=== PATIENT | male | born 1960 | race Caucasian/White ===

== ENCOUNTER → 2019-03-26 | Outpatient (CLI) | payer BC, OTHER | LOC: CAT → MRI 07:25 → CAT 03-29 14:51 → MRI 03-29 14:57 | DX: M51.86 Other intervertebral disc disorders, lumbar region (principal); M47.814 Spondylosis without myelopathy or radiculopathy, thoracic region; M47.816 Spondylosis without myelopathy or radiculopathy, lumbar region; M48.061 Spinal stenosis, lumbar region without neurogenic claudication; G89.29 Other chronic pain; Z88.8 Allergy status to other drugs, medicaments and biological substances ==

== ENCOUNTER → 2019-07-04 | Outpatient (CLI) | payer BC, OTHER ==
[~2019-07-04] VITALS: Ht 185.4 cm; Wt 92.1 kg
[~2019-07-04] MED LIST: BUDESONIDE8.43 ML NASAL; DEXTROAMP-AMPHE30 MG PO; FENTANYL1 EAC1 TOP; NEXIUM40 MG PO; OXYCODONE HCL10 MG PO; PERCOCET 10-321 EACH PO; TESTOSTERONE5 G1 TOP; WELLBUTRIN XL300 MG PO; XANAX 0.5 MG0.5 MG PO
[2019-07-04 14:57] VITALS: BP 133/92
--- NOTE | 2019-07-04 15:43 | NUR ---
Pain Clinic Assessment: 1. History of Osteoarthritis: Not Applicable History of Rheumatoid Arthritis: Not Applicable 2. Height: 6 ft. 1 in. 185.4 cm. Weight: 203.0 lb. oz. 92.080 kg. Patient's BMI: 26.8 3. Vital Signs: BP: 133/92 Pulse: 89 Resp: 16 Temp: 02 Sat: 96 ECG Mon: 4. Pain Intensity: 4 5. Fall Risk: Dizziness: N Needs help standing or walking: N Fallen in the last 3 months: N Fall risk comments: 6. Patient on Blood Thinner: None 7. History of Hypertension: N 8. Opioid Therapy greater than 6 weeks: N Opiate Contract Signed: 9. Risk Assessment Tool Provided: LOW RISK 11/22 10. Functional Assessment Tool: 11. Recreational Drug Use: Never Drug Type: Tobacco Use: Never Smoker Tobacco Type: Amount or Packs/day: How Many Years: Alcohol Use: Yes Frequency: Daily Quant: 1
--- NOTE | 2019-07-08 09:00 | HPC ---
[facility] [address] [place] [address] PAIN MANAGEMENT CONSULTATION Name: EMMA LOW Room #: REG SONAM Pearson.#: [id number] Admission: 07/04/19 Attend Phys: Livan London MD Discharge: Date of : 56 Report #: [id number] THIS REPORT FOR: //name// CC: Chema London DATE OF SERVICE: 07/04/2019 CHIEF COMPLAINT: Chronic low back pain. The patient has been on longstanding high dose opioid therapy. I am seeing the patient today at the request of his primary care physician, Dr. Chema Romero, who has been managing his medications. He has been suffering from chronic low back pain without radiculopathy for roughly 2 decades. He denies a history of injury. 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 The pain was severe enough to interfer with work activities. He was traveling back and forth between 2 hospitals, Spending lots of time in his car. He says that this exacerbated pain in his back. He describes it as a constant progressive throbbing sensation with standing. It is worse with bending forward and with lifting. He does not have pain with back extension typical of spondylosis due to facet arthropathy. He reports the pain is improved with pain medications and lying flat on his back. He also uses ice packs and has chronic use of ibuprofen 600 mg 4 times daily. Some days, he will use less, but he has had fairly extensive use of nonsteroidal anti-inflammatory drugs for a number of years. Descriptors of pain include steady, aching, throbbing, sharp and stabbing pain intensity on an average daily basis is 5-7/10. MEDICATIONS: Budesonide, testosterone, bupropion, omeprazole, fentanyl 50 mcg patch q.48 hours shorter interval due to decreased efficacy in the third day, oxycodone 10 immediate release. In addition to oxycodone 10/325, he received a total of 120 tablets per month. MEDICATIONS: Alprazolam 0.5 mg daily for anxiety disorder, dextroamphetamine extended release 30 mg salts taken twice daily, acyclovir, bupropion. ALLERGIES: ZOLOFT, CYMBALTA. PAST MEDICAL HISTORY: History of adult attention deficit disorder, anxiety disorder, gastroesophageal reflux disease. PAST SURGICAL HISTORY: Right elbow medial epicondyle injury 2004, right wrist [facility] [address] [place] [address] PAIN MANAGEMENT CONSULTATION Name: EMMA LOW [id number] Admission: 07/04/19 Attend Phys: Livan London MD Discharge: Date of : 56 Report #: [id number] fracture 1995, vasectomy 2003. 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 By his report his clinic is exceptionally successful, seeing in excess of 130 to 150 patients per month. He is pleased with his current practice and is doing well. He is with 4 children over the age of 20. He denies use of tobacco, but continues to drink alcoholic beverages 1 per day on average. He repeatedly described a contentious relationship with his ex- and some of the children after the divorce. He is wearing a belt under his scrubs today that allows him to carry a handgun and he describes his use of it to carry a concealed weapon, legal in the state of [place]. Impact pain score, 36/70. Scoring highest for enjoyment of life 7, sleep 7, normal work 8 and general activity 7. Opioid risk score positive for attention deficit disorder and a past history of depression scoring 3, addiction risk is low by this score. He denies any family or personal history of alcohol, drug abuse or illegal drug use or abuse. REVIEW OF SYSTEMS: Completed by the patient. In it, he describes only some constipation and some E.D. which may be opioid related. He also describes a history of depression. PHYSICAL EXAMINATION: GENERAL: He is a pleasant 58-year-old gentleman. VITAL SIGNS: Blood pressure is 133/92, heart rate 89, respirations 16, 6 feet 1 inch, 203 pounds, BMI is 26.8. He moves easily from a sitting to standing position. His gait is nonantalgic. HEENT: Normal. His pupils are equal, round, reactive to light and his EOMs are intact. NECK: Supple. CHEST: Clear to auscultation. CARDIAC: Rhythm was regular. MUSCULOSKELETAL: Examination of the spine reveals normal alignment. He has excellent range of motion with flexion, extension, rotation, and [id number] tilt. There is some paraspinous tenderness over a broad area extending throughout the entire lumbar region. Straight leg raising is negative in the supine position. Strength and sensation are judged to be normal. Deep tendon reflexes are 1-2+ at knees and ankles and symmetrical. No focal weakness is noted. No sacroiliac joint tenderness. No hip discomfort with internal and external rotation. No pain with palpation of the greater trochanter on either side and there is no sacroiliac tenderness. X-rays reviewed include a thoracic and lumbar spine. The thoracic spine shows mild spondylosis without evidence of spinal canal or neural foraminal narrowing. [address] [place] [address] PAIN MANAGEMENT CONSULTATION Name: EMMA LOW Room #: REG [facility].#: [id number] Admission: 07/04/19 Attend Phys: Livan London MD Discharge: Date of : 56 Report #: [id number] Similar findings are found in the lumbar, which shows [id number] multilevel disk desiccation and small multilevel disk bulges. There is no significant central canal stenosis. There is, however, some foraminal stenosis, most prominently at L3-L4 and L4-L5. IMPRESSION: Chronic low back pain with spondylosis. RECOMMENDATIONS: We had a lengthy discussion today about his current use of opioids. When I calculated his morphine milligram equivalency, I used the accepted figures come up with a number of 180 MME. Later reviewing his daily oxycodone use, I may have underestimated. If he is indeed taking 60 mg of oxycodone as breakthrough MME would increase to 190 MME per day. This would put him in his category in our pain practice of about the top 5% of patients. He would be considered by todays vernacular, a legacy patient having established these doses many years ago when the treatments were more aggressive. We discussed the CDC guidelines with which he was unfamiliar. This surprised me. I believe the CDC guideline was a good guide for physicians who are willing to manage patients with opioids and helps to put some structure on the use of medication management. He is currently being managed with an opioid agreement, has submitted to random drug screening, is receiving all his medicines from Dr. Romero, no other prescribers and fills all his medications at a single pharmacy. He understands the importance of safeguarding his medications, particularly in light of the high number of pills and his high MME. He is careful to make sure that there is no diversion of medication. He is now quite dependent on opioids and finds that they provide him with daily analgesia and improvement in daily function. He feels that he cannot function well without them. He credits the medication with allowing him to continue to practice albeit in a newer less demanding practice. 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 We discussed the fact that he has very little in the way of objective findings. I have recommended an exercise program to him in the strongest manner. 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 The benefits are widely known certainly for general cardiovascular health, but from the standpoint of chronic low back pain, there is nothing more important. I have urged him to begin a daily walking program and increasing his walking to 10,000 steps. From there, he can move into a more aerobic program. I think this single action will provide the best benefit for his chronic pain. In regard to his opioids, I think that his dose is high and should be tapered as he can. We talked about perhaps switching from fentanyl, which carries with it [address] [address] PAIN MANAGEMENT CONSULTATION Name: EMMA LOW Room #: REG SONAM Valencia#: [id number] Admission: 07/04/19 Attend Phys: Livan London MD Discharge: Date of : 56 Report #: [id number] a high morphine milligram equivalency. 120 of his morphine milligram equivalents come from the fentanyl patch. He has reported that the fentanyl provides the best relief for him and he appreciates continuous release. If he does work with Dr. Romero to taper his medications as he should, I would recommend no more than 10-20% reductions at monthly intervals. Slow tapering seems to be the best way to make adjustments. He has already done some tapering over the last year or two. I think lowering his opioid dependence in face of such limited objective findings is an important goal. Based on his high functioning level and his report of excellent analgesia, I think it is reasonable for him to continue on opioids at this time. Routine followup with his primary care physician is indicated in order to keep close monitoring on his medication. Finally, we did complete an opioid risk tool score. His score was 3, which places him at low risk for addictive behaviors. I will followup visit as requested by Dr. Romero and will assist him with chronic pain management issues. I will discuss this case personally with him. . <ELECTRONICALLY SIGNED> By: Livan London MD 07/08/19 0900 [id number] Livan London MD /nt
== END ==
LOC: PAIN 06:55
DX: M47.816 Spondylosis without myelopathy or radiculopathy, lumbar region (principal)

== ENCOUNTER → 2020-01-06 | Outpatient (CLI) | payer BC, OTHER ==
[~2020-01-06] VITALS: Ht 185.4 cm; Wt 93.5 kg
[2020-01-06 08:55] VITALS: BP 166/86
--- NOTE | 2020-01-06 09:10 | NUR ---
Pain Clinic Assessment: 1. History of Osteoarthritis: NONE History of Rheumatoid Arthritis: NONE 2. Height: 6 ft. 1 in. 185.4 cm. Weight: 206.2 lb. oz. 93.532 kg. Patient's BMI: 27.2 3. Vital Signs: BP: 166/86 Pulse: 103 Resp: 16 Temp: 02 Sat: 100 ECG Mon: 4. Pain Intensity: 6-7 5. Fall Risk: Dizziness: N Needs help standing or walking: N Fallen in the last 3 months: N Fall risk comments: 6. Patient on Blood Thinner: None 7. History of Hypertension: N 8. Opioid Therapy greater than 6 weeks: Y Opiate Contract Signed: 9. Risk Assessment Tool Provided: LOW RISK 11/22 10. Functional Assessment Tool: 11. Recreational Drug Use: Never Drug Type: Tobacco Use: Never Smoker Tobacco Type: Amount or Packs/day: How Many Years: Alcohol Use: Yes Frequency: Weekly Quant:
--- NOTE | 2020-01-16 14:30 | HPC ---
[facility] [place] [address] PAIN MANAGEMENT CONSULTATION Name: EMMA LOW Room #: REG SONAM PaulJazmine.#: [id number] Admission: 01/06/20 Attend Phys: Livan London MD Discharge: Date of : 56 Report #: [id number] THIS REPORT FOR: cc: Chema Romero MD, Neal A. MD Morgan,Livan Mix MD ~ THIS REPORT FOR: //name// CC: Chema London DATE OF SERVICE: 01/06/2020 REASON FOR VISIT: Followup visit for chronic back pain. HISTORY OF PRESENT ILLNESS: The patient is here today, hopeful for an epidural injection. He has had them in the past and they have been helpful. He may well have discogenic pain given his response. His MRI report of the thoracic spine is essentially normal. The lumbar MRI, however, shows multilevel degenerative desiccation and some foraminal stenosis, most prominently at L3-L4 and L4-L5 where he has most significant bulging and desiccation. He is on high-dose opioid therapy. I saw him in 06/2019 at the request of Dr. Romero and we discussed it today again, the importance of using the most effective lowest dose of oxycodone. He is clearly an opioid-dependent patient along with polypharmacy including alprazolam and the need for dextroamphetamine-amphetamine extended release to help with attention deficit disorder. I did have completed an opioid risk score today, which is 3 for attention deficit disorder and depression. 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 All of his goals focus on lowering pain in order to improve sleep and work. PHYSICAL EXAMINATION: He is pleasant, alert and oriented, no signs of overmedication, depression, or anxiety. He moves independently and easily from sitting to standing position, ambulates without too much difficulty. There are no antalgic features to his gait. Blood pressure is 166/86, heart rate 103, respirations 16, 6 feet 1 inch, 185, BMI of 27.2. He has mild pain with forward flexion, worse with extension. There is no radicular pain. Straight leg raising is negative. Sensation and strength in lower extremities are normal. IMPRESSION: Chronic back pain with degenerative disk disease. Minimal radiculopathy, primarily axial back pain with discogenic mechanism. [address] [address] PAIN MANAGEMENT CONSULTATION Name: EMMA LOW Room #: REG CLI [facility]#: [id number] Admission: 01/06/20 Attend Phys: Livan London MD Discharge: Date of : 56 Report #: [id number] PROCEDURE: Lumbar epidural injection under fluoroscopic guidance, L3-L4. After informed consent, he was taken to the fluoroscopic suite, placed prone, skin prepped with ChloraPrep. Skin anesthetized over L3-L4. A 20-gauge Tuohy epidural needle advanced in first attempt in the epidural space with loss of resistance. There was no blood or CSF aspirated. A 1 mL of Omnipaque injected. Good spread of dye observed in the epidural space followed by 3 mL of 0.5% lidocaine with 80 mg of triamcinolone. He tolerated the procedure well and was observed for 45 minutes and discharged. Followup visit planned in the pain clinic on an as needed basis for repeat injections. I will continue to discuss goals of lowest effective dose of opioids and reduction in polypharmacy going forward. <ELECTRONICALLY SIGNED> By: Livan London MD 01/16/20 1430 1628 0000 Livan London MD /nt
== END | disposition home or self-care (01) ==
LOC: PAIN 06:51
DX: M51.16 Intervertebral disc disorders with radiculopathy, lumbar region (principal); G89.29 Other chronic pain; M54.9 Dorsalgia, unspecified; F11.20 Opioid dependence, uncomplicated; Z98.890 Other specified postprocedural states; Z79.899 Other long term (current) drug therapy; Z88.8 Allergy status to other drugs, medicaments and biological substances

== ENCOUNTER 2021-01-31 13:06 | Inpatient (IN) | payer BC, OTHER ==
[~2021-01-31] VITALS: Ht 188 cm; Wt 67.0 kg
--- NOTE | ~2021-01-31 | TEE ---
[facility] [address] [address] TRANSESOPHAGEAL ECHOCARDIOGRAM Name: EMMA LOW Room #: 237-P ADM IN M.R.#: [id number] Admission: 01/31/21 Attend Phys: Chema Romero MD Discharge: Date of : 56 Report #: [id number] THIS REPORT FOR: cc: Chema Romero MD, Neal A. MD Lundgren, Craig H. MD [facility] ~ APPROVED REPORT Study performed: 02/02/2021 09:04:58 EXAM: Comprehensive 2D, Doppler, and color-flow Echocardiogram Patient Location: ICU Room #: 237 Status: routine BSA: 2.17 HR: 94 bpm BP: 110/62 mmHg Rhythm: NSR Other Information Study Quality: Good Indications Arrhythmia Covid 2D Dimensions RVDd: 39.48 mm IVSd: 8.35 (7-11mm) LVOT Diam: 20.25 (18-24mm) LVDd: 43.39 mm PWd: 9.45 (7-11mm) Ascending Ao: 33.50 (22-36mm) LVDs: 26.51 (25-40mm) Aortic Root: 26.86 mm IVC: 12.00 mm Volumes Left Atrial Volume (Systole) Single Plane 4CH: 43.22 mL Single Plane 2CH: 47.30 mL LA ESV Index: 24.00 mL/m2 Aortic Valve AoV Peak Claudio.: 1.39 m/s AO Peak Gr.: 7.72 mmHg LVOT Max P.86 mmHg LVOT Max V: 1.21 m/s RICCI Vmax: 2.80 cm2 [facility] [address] [place] [address] TRANSESOPHAGEAL ECHOCARDIOGRAM Name: EMMA LOW Room #: 237-P [facility]#: [id number] Admission: 01/31/21 Attend Phys: Chema Romero, Discharge: Date of : 56 Report #: [id number] Pulmonary Valve PV Peak Claudio.: 1.23 m/s PV Peak Gr.: 6.07 mmHg Left Ventricle The left ventricle is normal size. There is normal LV segmental wall motion. There is normal left ventricular wall thickness. Left ventricular systolic function is normal. The left ventricular ejection fraction is within the normal range. LVEF is 60-65%. The left ventricular diastolic function is normal. Right Ventricle The right ventricle is normal size. The right ventricular systolic function is normal. Atria The left atrium size is normal. The right atrium size is normal. Aortic Valve The aortic valve is normal in structure. No aortic regurgitation is present. There is no aortic valvular stenosis. Mitral Valve The mitral valve is normal in structure. There is no mitral valve regurgitation noted. No evidence of mitral valve stenosis. Tricuspid Valve The tricuspid valve is normal in structure. There is no tricuspid valve regurgitation noted. Pulmonic Valve The pulmonary valve is normal in structure. There is no pulmonic valvular regurgitation. Great Vessels The aortic root is normal in size. IVC is normal in size and collapses >50% with inspiration. Pericardium There is no pericardial effusion. <Conclusion> Left ventricular systolic function is normal. There is normal LV segmental wall motion. LVEF is 60-65%. Normal diastolic function [facility] [address] [place] [address] TRANSESOPHAGEAL ECHOCARDIOGRAM Name: EMMA LOW Room #: 237-P ADM IN .R.#: [id number] Admission: 01/31/21 Attend Phys: Chema Romero, Discharge: Date of : 56 Report #: [id number] The aortic valve is normal in structure. No aortic regurgitation or stenosis The mitral valve is normal in structure. No mitral valve regurgitation. Pulmonary artery pressure could not be reliably ascertained. There is no pericardial effusion. By: 1022 1022 Julian Villeda MD, FACC /INF
--- NOTE | ~2021-01-31 | EMS ---
[address] [address] EMS Patient Care Report Name: EMMA LOW Room #: 237-P ADM IN M.R.#: [id number] Admission: 01/31/21 Attend Phys: Chema Romero MD Discharge: Date of : 56 Report #: [id number] THIS REPORT FOR: //name// Report Transmitted: 02/08/2021 07:23 EMS Care Summary [facility] MED-ACT Incident [id number] @ 01/31/2021 12:23 Incident Location [address] [place] [address] Patient EMMA LOW Male, 60 Years 1960 Patient Address [address] [place] [address] Patient History Hypertension (HTN),Back Pain (Chronic), Patient Allergies No known allergies, Patient Medications Hydrochlorothiazide (Hctz), Bupropion, Adderall, Oxycodone, Hydrocodone, Chief Complaint Cardiac Arrest Disposition Transported No Lights/[place] Dispatch Reason Cardiac Arrest/ Transported To [facility] Narrative M1149 dispatched C1 to residence for Non-breather. Code blue called at 1227 by Sebas RODRIGUEZ (tug captain) Upon arrival pt found lying supine on floor in bedroom, unconscious, apneic, and pulseless. CPR and assisted respirations in progress by on scene first [address] [address] EMS Patient Care Report Name: EMMA LOW Room #: 237-P ADM IN .R.#: [id number] Admission: 01/31/21 Attend Phys: Chema Roemro MD Discharge: Date of : 56 Report #: [id number] responders. Pt states that she last saw the pt alive at 2230 last night when he went to bed, Pt state that the pt drank heavily last night and takes oxycodone and hydrocodone for chronic pain. Pt states that she found the pt face down in the bed, unconscious, and not breathing. First responding fire department states that they found a fentanyl (unknown dosage) patch on each shoulder and removed them. First responding fire department states that the pt was blue when they arrived but his chest was warm to the touch. Pt initially in asystole, and then PEA until ROSC. ROSC achieved at 1241. Strong radial pulse Pt began breathing spontaneously on his own while still in the house (approx 12:57) No eye reaction Rohit device placed on patient prior to moving to the cot. Delay in first BP due to BP cuff air leak. At approx 1301 the pt began breathing more on his own but not consistently. Pt did not fight the IGEL. No eye reaction. Pt vitals and condition monitored enroute. Report given to hospital. Pt care transferred in ER room. Appended: Correction: pt states that she last saw the pt alive at 1030 this morning. Correction: pt found the pt face down in the bed just prior to calling 911. Initial Vitals @12:17WeHY1: 84, @12:37Glucose: 108,EtCO2: 68, @13:02P: 113,R: 27,GCS: 3,EtCO2: 35,[place] Suspected: false @PTAP: 0,R: 0,GCS: 3, @12:33P: 0,R: 8,Pain: 0/10,GCS: 3, @13:02P: 116,R: 12,BP: 89/39,GCS: 3,EtCO2: 32,Revised Trauma: 7, @12:52P: 130,R: 18,BP: 85/48,GCS: 3,CO: 0,EtCO2: 59,SpO2: 99,Revised Trauma: 7, @12:46P: 146,R: 14,BP: 141/65,GCS: 3,CO: 1,EtCO2: 71,SpO2: 95,Revised Trauma: 8, @12:41P: 146,R: 10,GCS: 3,EtCO2: 83, @12:43P: 146,R: 9,GCS: 3,EtCO2: 89,VT Suspected: false [address] [address] EMS Patient Care Report Name: EMMA LOW Room #: 237-P ADM IN M.R.#: [id number] Admission: 01/31/21 Attend Phys: Chema Romero MD Discharge: Date of : 56 Report #: [id number] Assessments @12:33MENTAL:Unresponsive,SKIN:HEENT:Eyes: Left: Dilated,Eyes: Right: Dilated,Eyes: Left Pupil: 5-mm,Eyes: Right Pupil: 5-mm,LUNG SOUNDS:ABDOMEN:PELVIS//GI:EXTREMITIES:PULSE:Femoral: Absent,Carotid: Absent,Radial: Absent,NEURO:@12:32MENTAL:Unresponsive,SKIN:HEENT:LUNG SOUNDS:ABDOMEN:PELVIS//GI:EXTREMITIES:PULSE:Radial: 2+ Normal,Carotid: 2+ Normal,Femoral: 2+ Normal,NEURO: Impression Cardiac arrest Procedures @12:37Epinephrine 1:10 - 1 Milligrams (mg) - Intravenous (IV)Response: Improved@12:41Epinephrine 1:10 - 1 Milligrams (mg) - Intravenous (IV)Response: Improved@13:0212-Lead ECGResponse: UnchangedSucceeded@12:4312-Lead ECGResponse: UnchangedSucceeded@PTAResponse: ImprovedSucceeded@12:36Normal Saline (.9% NaCl) 650cc (18 ga) Site: Antecubital-RightResponse: ImprovedSucceeded@PTAiGEL Complications: None,Response: ImprovedSucceeded@PTAResponse: UnchangedFailed@12:40Naloxone - 1 Milligrams (mg) - Intravenous (IV)Response: Improved@12:56Norepinephrine - 10 Micrograms (mcg) - Intravenous (IV)Response: Improved Timeline HAMMERER,Response: ImprovedSucceeded, HAMMERER,iGEL Complications: None,,Response: ImprovedSucceeded, HAMMERER,Response: UnchangedFailed, HAMMERER,BP: / M,PULSE: 0,RR: 0 R,SPO2: Ox,ETCO2: ,BG: ,PAIN: ,GCS: 3, 12:22,Call Received 12:22,Psap Call 12:23,Dispatched 12:24,En Route 12:31,On Scene 12:32,At Patient 12:33,BP: / M,PULSE: 0,RR: 8 R,SPO2: Ox,ETCO2: ,BG: ,PAIN: 0,GCS: 3, 12:36,Normal Saline (.9% NaCl) 650cc 18 ga Site: Antecubital-Right,Response: ImprovedSucceeded, 12:37,BP: / M,PULSE: ,RR: R,SPO2: Ox,ETCO2: 68 ,B,PAIN: ,GCS: , 12:37,Epinephrine 1:10 - 1 Milligrams (mg) - Intravenous (IV),Response: Improved 12:40,Naloxone - 1 Milligrams (mg) - Intravenous (IV),Response: Improved 12:40,BP: / M,PULSE: ,RR: R,SPO2: Ox,ETCO2: 84 ,BG: ,PAIN: ,GCS: , 12:41,Epinephrine 1:10 - 1 Milligrams (mg) - Intravenous (IV),Response: Improved 12:41,BP: / M,PULSE: 146,RR: 10 R,SPO2: Ox,ETCO2: 83 ,BG: ,PAIN: ,GCS: 3, 12:43,12-Lead ECG,Response: UnchangedSucceeded, 12:43,BP: / M,PULSE: 146,RR: 9 R,SPO2: Ox,ETCO2: 89 ,BG: ,PAIN: ,GCS: 3, 12:46,BP: 141/65 M,PULSE: 146,RR: 14 R,SPO2: 95 Ox,ETCO2: 71 ,BG: ,PAIN: ,GCS: 3, [facility] [address] [facility] [place] [address] EMS Patient Care Report Name: EMMA LOW Room #: 237-P ADM IN M.R.#: [id number] Admission: 01/31/21 Attend Phys: Chema Romero MD Discharge: Date of : 56 Report #: [id number] 12:52,BP: 85/48 M,PULSE: 130,RR: 18 R,SPO2: 99 Ox,ETCO2: 59 ,BG: ,PAIN: ,GCS: 3, 12:56,Norepinephrine - 10 Micrograms (mcg) - Intravenous (IV),Response: Improved 12:58,Depart Scene 13:02,12-Lead ECG,Response: UnchangedSucceeded, 13:02,BP: / M,PULSE: 113,RR: 27 R,SPO2: Ox,ETCO2: 35 ,BG: ,PAIN: ,GCS: 3, 13:02,BP: 89/39 M,PULSE: 116,RR: 12 R,SPO2: Ox,ETCO2: 32 ,BG: ,PAIN: ,GCS: 3, 13:03,At Destination 13:59,Call Closed Disclaimer v1.1 Copyright 2020 [employer] This EMS Care Summary contains data elements from the applicable legal record (which may be displayed differently). It is designed to provide pertinent information for the following purposes: continuity of care, clinical quality, and state data reporting. The complete legal record is available to ED staff and administrators of the receiving hospital in [employer] Patient Tracker. All data is provided "as is."
--- NOTE | ~2021-01-31 | EMS ---
[address] [address] EMS Patient Care Report Name: EMMA LOW Room #: 237-P ADM IN M.R.#: [id number] Admission: 01/31/21 Attend Phys: Jayden Ramon Discharge: Date of : 56 Report #: [id number] THIS REPORT FOR: //name// Report Transmitted: 01/31/2021 18:58 EMS [facility] MED-ACT Incident [id number] @ 01/31/2021 12:23 Incident Location [address] [place] [address] Patient EMMA LOW Male, 60 Years 1960 Patient Address [address] [place] [address] Patient History Hypertension (HTN),Back Pain (Chronic), Patient Allergies No known allergies, Patient Medications Hydrochlorothiazide (Hctz), Bupropion, Adderall, Oxycodone, Hydrocodone, Chief Complaint Cardiac Arrest Disposition Transported No Lights/[place] Dispatch Reason Cardiac Arrest/ Transported To [facility] Narrative M1149 dispatched C1 to residence for Non-breather. Code blue called at 1227 by Sebas RODRIGUEZ (seating captain) Upon arrival pt found lying supine on floor in bedroom, unconscious, apneic, and pulseless. CPR and assisted respirations in progress by on scene first [address] [address] EMS Patient Care Report Name: EMMA LOW Room #: 237-P ADM IN M.R.#: [id number] Admission: 01/31/21 Attend Phys: Jayden Ramon Discharge: Date of : 56 Report #: [id number] responders. Pt states that she last saw the pt alive at 2230 last night when he went to bed, Pt state that the pt drank heavily last night and takes oxycodone and hydrocodone for chronic pain. Pt states that she found the pt face down in the bed, unconscious, and not breathing. First responding fire department states that they found a fentanyl (unknown dosage) patch on each shoulder and removed them. First responding fire department states that the pt was blue when they arrived but his chest was warm to the touch. Pt initially in asystole, and then PEA until ROSC. ROSC achieved at 1241. Strong radial pulse Pt began breathing spontaneously on his own while still in the house (approx 12:57) No eye reaction Rohit device placed on patient prior to moving to the cot. Delay in first BP due to BP cuff air leak. At approx 1301 the pt began breathing more on his own but not consistently. Pt did not fight the IGEL. No eye reaction. Pt vitals and condition monitored enroute. Report given to hospital. Pt care transferred in ER room. Initial Vitals @12:43YxJZ1: 84, @12:37Glucose: 108,EtCO2: 68, @13:02P: 113,R: 27,GCS: 3,EtCO2: 35,[place] Suspected: false @PTAP: 0,R: 0,GCS: 3, @12:33P: 0,R: 8,Pain: 0/10,GCS: 3, @13:02P: 116,R: 12,BP: 89/39,GCS: 3,EtCO2: 32,Revised Trauma: 7, @12:52P: 130,R: 18,BP: 85/48,GCS: 3,CO: 0,EtCO2: 59,SpO2: 99,Revised Trauma: 7, @12:46P: 146,R: 14,BP: 141/65,GCS: 3,CO: 1,EtCO2: 71,SpO2: 95,Revised Trauma: 8, @12:41P: 146,R: 10,GCS: 3,EtCO2: 83, @12:43P: 146,R: 9,GCS: 3,EtCO2: 89,[place] Suspected: false Assessments @12:33MENTAL:Unresponsive,SKIN:HEENT:Eyes: Left: Dilated,Eyes: Right: Dilated,Eyes: Left Pupil: 5-mm,Eyes: Right Pupil: 5-mm,LUNG SOUNDS:ABDOMEN:PELVIS//GI:EXTREMITIES:PULSE:Femoral: Absent,Carotid: [facility] [address] [place] [address] EMS Patient Care Report Name: EMMA LOW Room #: 237-P ADM IN M.R.#: [id number] Admission: 01/31/21 Attend Phys: Jayden Ramon Discharge: Date of : 56 Report #: [id number] Absent,Radial: Absent,NEURO:@12:32MENTAL:Unresponsive,SKIN:HEENT:LUNG SOUNDS:ABDOMEN:PELVIS//GI:EXTREMITIES:PULSE:Radial: 2+ Normal,Carotid: 2+ Normal,Femoral: 2+ Normal,NEURO: Impression Cardiac arrest Procedures @12:37Epinephrine 1:10 - 1 Milligrams (mg) - Intravenous (IV)Response: Improved@12:41Epinephrine 1:10 - 1 Milligrams (mg) - Intravenous (IV)Response: Improved@13:0212-Lead ECGResponse: UnchangedSucceeded@12:4312-Lead ECGResponse: UnchangedSucceeded@PTAResponse: ImprovedSucceeded@12:36Normal Saline (.9% NaCl) 650cc (18 ga) Site: Antecubital-RightResponse: ImprovedSucceeded@PTAiGEL Complications: None,Response: ImprovedSucceeded@PTAResponse: UnchangedFailed@12:40Naloxone - 1 Milligrams (mg) - Intravenous (IV)Response: Improved@12:56Norepinephrine - 10 Micrograms (mcg) - Intravenous (IV)Response: Improved Timeline PRINCIPLE INDUSTRIAL HYGIENIST,Response: ImprovedSucceeded, PRINCIPLE INDUSTRIAL HYGIENIST,iGEL Complications: None,,Response: ImprovedSucceeded, PRINCIPLE INDUSTRIAL HYGIENIST,Response: UnchangedFailed, PRINCIPLE INDUSTRIAL HYGIENIST,BP: / M,PULSE: 0,RR: 0 R,SPO2: Ox,ETCO2: ,BG: ,PAIN: ,GCS: 3, 12:22,Call Received 12:22,Psap Call 12:23,Dispatched 12:24,En Route 12:31,On Scene 12:32,At Patient 12:33,BP: / M,PULSE: 0,RR: 8 R,SPO2: Ox,ETCO2: ,BG: ,PAIN: 0,GCS: 3, 12:36,Normal Saline (.9% NaCl) 650cc 18 ga Site: Antecubital-Right,Response: ImprovedSucceeded, 12:37,BP: / M,PULSE: ,RR: R,SPO2: Ox,ETCO2: 68 ,B,PAIN: ,GCS: , 12:37,Epinephrine 1:10 - 1 Milligrams (mg) - Intravenous (IV),Response: Improved 12:40,Naloxone - 1 Milligrams (mg) - Intravenous (IV),Response: Improved 12:40,BP: / M,PULSE: ,RR: R,SPO2: Ox,ETCO2: 84 ,BG: ,PAIN: ,GCS: , 12:41,Epinephrine 1:10 - 1 Milligrams (mg) - Intravenous (IV),Response: Improved 12:41,BP: / M,PULSE: 146,RR: 10 R,SPO2: Ox,ETCO2: 83 ,BG: ,PAIN: ,GCS: 3, 12:43,12-Lead ECG,Response: UnchangedSucceeded, 12:43,BP: / M,PULSE: 146,RR: 9 R,SPO2: Ox,ETCO2: 89 ,BG: ,PAIN: ,GCS: 3, 12:46,BP: 141/65 M,PULSE: 146,RR: 14 R,SPO2: 95 Ox,ETCO2: 71 ,BG: ,PAIN: ,GCS: 3, 12:52,BP: 85/48 M,PULSE: 130,RR: 18 R,SPO2: 99 Ox,ETCO2: 59 ,BG: ,PAIN: ,GCS: 3, 12:56,Norepinephrine - 10 Micrograms (mcg) - Intravenous (IV),Response: Improved 12:58,Depart Scene 13:02,12-Lead ECG,Response: UnchangedSucceeded, [address] [address] EMS Patient Care Report Name: EMMA LOW Room #: 237-P ADM IN M.R.#: [id number] Admission: 01/31/21 Attend Phys: Jayden Ramon Discharge: Date of : 56 Report #: [id number] 13:02,BP: / M,PULSE: 113,RR: 27 R,SPO2: Ox,ETCO2: 35 ,BG: ,PAIN: ,GCS: 3, 13:02,BP: 89/39 M,PULSE: 116,RR: 12 R,SPO2: Ox,ETCO2: 32 ,BG: ,PAIN: ,GCS: 3, 13:03,At Destination 13:59,Call Closed Disclaimer v1.1 Copyright 2020 [employer] This EMS Care Summary contains data elements from the applicable legal record (which may be displayed differently). It is designed to provide pertinent information for the following purposes: continuity of care, clinical quality, and state data reporting. The complete legal record is available to ED staff and administrators of the receiving hospital in [employer] Patient Tracker. All data is provided "as is."
--- NOTE | ~2021-01-31 | EEG ---
[facility] [place] [address] ELECTROENCEPHALOGRAM Name: EMMA LOW Room #: 454-P ADM IN M.R.#: [id number] Admission: 01/31/21 Attend Phys: Chema Romero MD Discharge: Date of : 56 Report #: [id number] THIS REPORT FOR: //name// DATE OF SERVICE: 02/18/2021 This patient had 4 EEGs before, and this one was done because the other one was when the patient was on sedation. This EEG was done without any sedation and all the sedations were discontinued. This EEG is about the same. It is a severely abnormal EEG, which demonstrated triphasic waves versus epileptiform activity. We had tried to distinguish between these two in the prior EEG by stopping the propofol, and it looked like epileptiform activity. Photic stimulation is unremarkable. IMPRESSION: Even without sedation, the patient's EEG continued to be severely abnormal consistent with hypoxic encephalopathy with possible seizure activity. EEG was discussed with the family. This patient clinically has brainstem reflexes. I discussed with the patient's family that if we need to determine the prognosis with 100% accuracy, the patient will need PEG and trach and supportive care for several weeks to several months. In general, prognosis is guarded for any reasonable medical recovery, which can sustain reasonable quality of the life. This patient survived because the respiratory centers are intact. They may go to minimum conscious state or a life, which requires a lot of help. Family is aware of all those, and it was their decision that this patient would have asked to discontinue his life support measure at this stage if he was able to make his own decision. They wanted hospice and comfort care in this patient for the time being, and plan was to follow that. Thank you very much for this referral and if you have any question, please feel free to contact me. By: 1340 1437 Danny Berman MD /nt
[2021-01-31 13:06] VITALS: BP 209/124
[2021-01-31 13:24] LABS: BE(vivo) -7.8 mmol/L (-2 to +3); HCO3 16.7 mmol/L (22.0-26.0); PCO2 31.7 mmHg (35.0-45.0); PO2 71.1 mmHg (80.0-100.0); pH 7.339 (7.360-7.450); sO2 93.6 % (92.0-98.0)
[2021-01-31 13:36] LABS: HEMATOCRIT 41.2 % (42.0-52.0); HEMOGLOBIN 14.1 gm/dL (14.0-18.0); MCH 32.4 pg (26.0-34.0); MCHC 34.1 g/dL (28.0-37.0); MCV 94.9 fL (80.0-100.0); PLATELET COUNT 203 thou/uL (150-400); RBC 4.34 mil/uL (4.50-6.00); WBC 10.1 thou/uL (4.0-11.0)
[2021-01-31 13:41] LABS: ANION GAP 13 mmol/L (7-16); BUN 31 mg/dL (7-18); CALCIUM 8.6 mg/dL (8.5-10.1); CHLORIDE 98 mmol/L (98-107); CO2 25 mmol/L (21-32); CREATININE 1.7 mg/dL (0.7-1.3); GLUCOSE 165 mg/dL (74-106); POTASSIUM 3.6 mmol/L (3.5-5.1); SODIUM 136 mmol/L (136-145)
[2021-01-31 13:47] LABS: DIRECT BILIRUBIN < 0.1 mg/dL (<0.1-0.2); SGOT 133 U/L (15-37); SGPT 142 U/L (16-63); TOTAL BILIRUBIN 0.3 mg/dL (0.2-1.0); TOTAL PROTEIN 7.2 g/dL (6.4-8.2)
[2021-01-31 13:49] LABS: URINE BILIRUBIN NEGATIVE (Negative); URINE BLOOD 2+ (Negative); URINE CLARITY CLEAR; URINE COLOR YELLOW; URINE GLUCOSE-RANDOM* NEGATIVE (Negative); URINE KETONES NEGATIVE (Negative); URINE LEUKOCYTES-REFLEX NEGATIVE (Negative); URINE NITRITE-REFLEX NEGATIVE (Negative); URINE PROTEIN (DIPSTICK) 1+ (Negative); URINE UROBILINOGEN 0.2 E.U./dl (0.2-1.0)
[2021-01-31 13:56] LABS: AMP/METHAMP POSITIVE (Negative); BARBITURATES Negative (Negative); BENZODIAZEPINES POSITIVE (Negative); COCAINE Negative (Negative); METHADONE Negative (Negative); OPIATES POSITIVE (Negative); PCP Negative (Negative)
[2021-01-31 14:03] LABS: MUCUS 0-3 Light strn/LPF (None Seen); SQUAMOUS None Seen /LPF (0-3)
[2021-01-31 14:04] LABS: HYALINE CASTS 0-3 Few /LPF (None Seen); URINE WBC-REFLEX 0-5 Rare /HPF (0-5)
[2021-01-31 14:06] LABS: CRYSTALS None Seen /LPF (None Seen)
[2021-01-31 14:33] LABS: ABSOLUTE NEUTROPHILS 6.6 thou/uL (1.4-8.2); ANISOCYTOSIS 1+
[2021-01-31] MEDS ORDERED: BENICAR40 MG PO (16:03)
[2021-01-31] MEDS ORDERED: ROSUVASTATIN CA10 MG PO (16:06)
[2021-01-31] MEDS ORDERED: HYDROCODON-ACE1 EAC7 PO (16:07)
--- NOTE | 2021-01-31 16:45 | NUR ---
ETOMIDATE 20 MG GIVEN AT 1631, SUCCINYLCHOLINE 100 MG GIVEN AT 1632, INTUBATION 7.5 @ 1635, 25 AT THE LIP, OG TUBE @ 1645 55 @ LIP
--- NOTE | 2021-01-31 18:34 | NUR ---
CONSULTED TO PLACE A PICC FOR A PATIENT POST CARDIAC ARREST HAVING ACTIVE SEIZURES. ORDER AND CONSENT NOTED. THE PATIENT IS UNRESPONSIVE TO TEACHING. THE RIGHT UPPER ARM BRACHIAL VEIN IS WIDLEY PATIENT WITH THE VEIN TO CATHETER RATIO LESS THAN 25%. A #5F TRIPLE LUMEN POWER PICC WAS PLACED PER HOSPITAL POLICY AFTER A BEDSIDE TIMEOUT WAS COMPLETED. THE PICC WAS TRIMMED TO 41CM AND CONFIRMED AT 4CM EXTERNAL WITH 3CG CONFIRMATION. LINE WAS SECURED AND RELEASED FOR USE.
[2021-01-31 19:20] VITALS: BP 128/66
[2021-01-31 20:00] VITALS: BP 90/54
[2021-01-31 21:45] LABS: D-DIMER 4.98 ug/mLFEU (0.19-0.50)
[2021-01-31 22:37] LABS: BE(vivo) -2.6 mmol/L (-2 to +3); HCO3 24.3 mmol/L (22.0-26.0); PCO2 50.6 mmHg (35.0-45.0); PO2 106.7 mmHg (80.0-100.0); sO2 97.3 % (92.0-98.0)
[2021-01-31 22:39] LABS: pH 7.299 (7.360-7.450)
[2021-02-01] VITALS (19 sets, daily range): BP systolic 78–126; BP diastolic 41–72
[2021-02-01 00:37] LABS: ABSOLUTE NEUTROPHILS 6.3 thou/uL (1.4-8.2); BASOPHILS 0.3 % (0.0-2.0); EOSINOPHILS 0.2 % (0.0-3.0); HEMATOCRIT 38.1 % (42.0-52.0); HEMOGLOBIN 13.1 gm/dL (14.0-18.0); LYMPHOCYTES 9.2 % (24.0-44.0); MCHC 34.3 g/dL (28.0-37.0); MCV 93.3 fL (80.0-100.0); MONOCYTES 5.5 % (1.0-8.0); PLATELET COUNT 161 thou/uL (150-400); POLYS 84.8 % (36.0-66.0); RBC 4.08 mil/uL (4.50-6.00); WBC 7.5 thou/uL (4.0-11.0)
[2021-02-01 00:48] LABS: CALCIUM 7.8 mg/dL (8.5-10.1); TROPONIN-I 0.21 ng/mL (<0.06)
--- NOTE | 2021-02-01 01:28 | NUR ---
PT ARRIVED TO ICU FROM ER ON 01/31 AT APPROX 1940. PATIENT TRANSFERED TO ICU BED WITHOUT COMPLICATION AND PLACED ON MONITOR. PATIENT EXPERIENCING TWITCHING IN FACE AND CHEST, R ARM MOVING TOWARDS CORE, AND BILAT FEET POINTING INWARD. PUPILS FIXED APPROX 2MM. POSITIVE CORNEAL, NO COUGH OR GAG. PATIENT TEMP 39.4, AND PLACED ON ARTIC SUN FOR TTM AT 2000. DR MIRANDA TO BEDSIDE FOR A LINE. HYPOTHERMIA PROTOCOL ORDERED VERBAL WITH READ BACK DOCTOR RUTH. FLOTRACK APPLIED. CONTINUE PLAN OF CARE. SEE ICU VITAL SIGN CARTING FOR FURTHER DOCUMENTATION. PATIENT ACHIEVED TARGTED TEMP OF 33*C AT 2340. WILL CONTINUE TO MONITOR.
[2021-02-01 01:36] LABS: APTT 26.5 Seconds (24.5-32.8)
[2021-02-01 03:03] LABS: CREATININE 1.1 mg/dL (0.7-1.3); MAGNESIUM 1.9 mg/dL (1.8-2.4); PHOSPHORUS 3.2 mg/dL (2.6-4.7); POTASSIUM 3.5 mmol/L (3.5-5.1)
--- NOTE | 2021-02-01 03:36 | NUR ---
PTS S.O. (ALEXANDRA SMITH) HAS CALLED SEVERAL TIME THROUGHOUT THE SHIFT FOR UPDATES. THIS RN IS WORKING WITH DONA MENCHACA FROM ED TO GET DPOA PAPERWORK. S.O. STATES THAT SHE HAS DPOA. S.O. SENT DPOA PAPERWORK BUT THE PAGE WITH INFORMATION REGARDING WHO WAS LISTED DPOA WAS MISSING FROM THE DOCUMENT. THIS RN REQUESTED THAT IT BE SENT TO [facility] AGAIN. S.O. AGREED TO SEND AGAIN. S.O. STATES THAT SHE IS CONCERNED ABOUT ASTRANGED FAMILY GETTING INFORMATION. RN STRESSED IMPORTANCE OF DPOA PAPERWORK. RN EXPLAINED THAT "PLAN OF CARE HAS NOT CHANGED" WHEN ASKED FOR UPDATE. PTS DAUGHTER, COLIN, ALSO CALLED REQUESTING THAT PTS CHILDREN BE ABLE TO VISIT AND GET INFORMATION. COLIN STATED THAT ALEXANDRA SMITH IS DPOA. RN STATED THAT ALL INFORMATION WILL HAVE TO GO THRU DPOA. COLIN STATES THAT SHE WILL CALL A PATIENT AUTO SERVICE DISPATCHER AND ADMIN IN THE MORNING WITH CONCERNS ABOUT DPOA.
[2021-02-01 03:54] LABS: BE(vivo) -1.8 mmol/L (-2 to +3); PCO2 39.2 mmHg (35.0-45.0); pH 7.386 (7.360-7.450); sO2 98.7 % (92.0-98.0)
--- NOTE | 2021-02-01 05:22 | NUR ---
PATIENT REMAINS ON TTM PROTOCOL. PLAN TO REWARM TODAY AT 2340. LIMITED NEURO EXAM R/T SEDATION FOR TTM. REQUIRING MAX PROPFOL, FENTANYL AND MODERATE AMOUNTS OF VERSED TO REDUCE SHIVERING/MYOCLONUS. SEE ICU VS CHARTING FOR DETAILS. PUPILS FIXED AT 2MM, POSITIVE CORNEAL, NO COUGH GAG OR PAIN WD. MINIMAL VENT SETTINGS. ADEQUATE URINE OUTPUT. CONTINUE WITH CURRENT PLAN OF CARE.
[2021-02-01 06:14] LABS: ABSOLUTE NEUTROPHILS 9.2 thou/uL (1.4-8.2); BASOPHILS 0.1 % (0.0-2.0); EOSINOPHILS 0.1 % (0.0-3.0); HEMOGLOBIN 13.2 gm/dL (14.0-18.0); LYMPHOCYTES 4.1 % (24.0-44.0); MCH 31.6 pg (26.0-34.0); MCHC 33.7 g/dL (28.0-37.0); MCV 93.7 fL (80.0-100.0); MONOCYTES 6.3 % (1.0-8.0); PLATELET COUNT 154 thou/uL (150-400); POLYS 89.4 % (36.0-66.0); RBC 4.17 mil/uL (4.50-6.00); RDW 12.8 % (10.5-14.5); WBC 10.2 thou/uL (4.0-11.0)
[2021-02-01 06:27] LABS: CALCIUM 7.9 mg/dL (8.5-10.1); PHOSPHORUS 2.7 mg/dL (2.5-4.9); POTASSIUM 3.7 mmol/L (3.5-5.1); TROPONIN-I 0.08 ng/mL (<0.06)
[2021-02-01 06:43] LABS: APTT 24.8 Seconds (24.5-32.8); PROTIME 10.9 Seconds (9.3-11.4)
--- NOTE | 2021-02-01 07:20 | EKG ---
[address] [address] ELECTROCARDIOGRAM REPORT Name: EMMA LOW Room #: 237- ADM IN M.R.#: [id number] Admission: 01/31/21 Attend Phys: Jayden Ramon Discharge: Date of : 56 Report #: [id number] [facility] ED Test Date: 2021-01-31 Test Time: 15:44:11 Pat Name: EMMA LOW Department: Room: 237 Gender: M Nursing Home Director: angélica : 1960 Requested By: Jayden Ramon Order Number: [id number] MD: Reyes Franks Measurements Intervals [place] Rate: 101 P: 53 [place]: 201 QRS: -45 QRSD: 141 T: 57 QT: 370 QTc: 480 Interpretive Statements Sinus tachycardia Left bundle branch block Compared to ECG 01/31/2021 13:12:18 No significant changes Electronically Signed On 02-01-2021 7:20:14 CDT by Reyes Franks [email or web address] <ELECTRONICALLY SIGNED> By: Reyes Franks MD, [facility] 02/01/21 0720 D: 03/1543 154 Reyes Franks MD, FACC /EPI
--- NOTE | 2021-02-01 07:20 | EKG ---
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
--- NOTE | 2021-02-01 07:51 | HC ---
[facility] [place] [address] CONSULTATION Name: EMMA LOW Room #: 237-P ADM IN M.R.#: [id number] Admission: 01/31/21 Attend Phys: Jayden Ramon Discharge: Date of : 56 Report #: [id number] THIS REPORT FOR: cc: Chema Romero MD, Neal A. MD Lundgren,Julian Maravilla MD [facility] ~ DATE OF SERVICE: 01/31/2021 REASON FOR CONSULTATION: Status post arrest. 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 His history comes from an interview with the patient's as he arrested at home and is now brought to the Emergency Department. He has had chronic pain issues for which she takes a variety of medicines including a fentanyl patch every 2 days; oxycodone for breakthrough pain, Xanax for anxiety and Adderall. His went in his bedroom about 10:30 this morning to check on him, he had slurred speech and was arousable. He gave his a hug. She asked if he had been drinking; she saw about a sixth of a scotch bottle empty. She left him to "sleep it off." His usual pill bottles, which are usually at the bedside, were not at the bedside, which she thought was unusual. Around 12:30, she went to check on him, he was face down on his pillow. She turned him over and he was cyanotic. She began doing chest compressions. Paramedics were summoned. The initial rhythm was asystole. An AED was placed and he did develop a shockable rhythm and received 1 defibrillation. He received two 1 mg aliquots of epinephrine and Narcan. He then had return of spontaneous respirations and circulation. He was breathing on his own when he presented to the Emergency Department. After arrival, he appeared to have a seizure. He became hypotensive and was in the process of being intubated. His reports no prior significant health problems other than back issues. There is no history of diabetes, prior significant illnesses or surgeries. ALLERGIES: HE IS ALLERGIC TO CYMBALTA AND ZOLOFT. MEDICATIONS: Include olmesartan 40 mg daily, rosuvastatin 10 mg daily, Nexium 40 mg daily, Wellbutrin-XL 300 mg daily, alprazolam 0.5 mg three times a day, oxycodone IR 10 mg for breakthrough pain, fentanyl patch every 48 hours, dextroamphetamine-amphetamine capsules 30 mg twice daily. PAST MEDICAL HISTORY: Notable for prior remote elbow surgery and hypertension. 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 FAMILY HISTORY: Father was killed. Mother lived into her 80s. She had a [facility] [address] [address] CONSULTATION Name: EMMA LOW Room #: 237-P [facility] IN M.R.#: [id number] Admission: 01/31/21 Attend Phys: Jayden Ramon Discharge: Date of : 56 Report #: [id number] history of diabetes. REVIEW OF SYSTEMS: Not obtainable. PHYSICAL EXAMINATION: GENERAL: Reveals a comatosed gentleman who is not arousable. VITAL SIGNS: Blood pressure is 80/40, heart rate of 110 and regular. He is afebrile. He is 6 feet 2 inches tall, 199 pounds. HEENT: There are neither xanthelasma, subcutaneous xanthomata, oral mucosal or digital cyanosis or kyphoscoliosis present. CHEST: Clear to auscultation and percussion. CARDIAC: Regular rate and rhythm with normal S1, S2. ABDOMEN: Soft and nontender. EXTREMITIES: Without cyanosis or clubbing. Radial pulses are 2+. NEUROLOGIC: He is unresponsive. LABORATORY DATA: Sodium 136, potassium 3.6, creatinine 1.7. Troponin 0, magnesium 2.4. Alcohol 17. Drug screen is positive for amphetamines, benzodiazepines and opiates. White count 10.1, hemoglobin 14, hematocrit 41, platelet count 203. IMAGING STUDIES: Head CT is normal. Chest x-ray is normal. EKG, sinus tachycardia with left bundle-branch block. IMPRESSION: 1. Status post out of hospital arrest, suspect narcotic overdose. 2. Probable anoxic brain injury; possible post-arrest seizures. Prolonged at least 14 minutes of CPR, unknown downtime prior to CPR. 3. Acute kidney injury. 4. History of hypertension. 5. Left bundle-branch block post-arrest. 6. Chronic pain syndrome. RECOMMENDATIONS: 1. Hypothermia protocol. Neurology and pulmonary consultations. 2. Intubation to protect airway. 3. Echocardiogram with Doppler. Serial cardiac troponins. I would suspect a small troponin rise due to prolonged CPR. An ischemic myocardial event is not thought to be the etiology to this. At this point, no antiarrhythmic therapy is warranted. Supportive care. 4. These issues have been discussed with Dr. Jayden Ramon. Prolonged discussion with the patient's . [employer] [facility] [address] [place] [address] CONSULTATION Name: EMMA LOW Room #: 237-P ADM IN M.R.#: [id number] Admission: 01/31/21 Attend Phys: Jayden Ramon Discharge: Date of : 56 Report #: [id number] Thank you for asking me to participate in this critically ill gentleman. <ELECTRONICALLY SIGNED> By: Julian Villeda MD, FACC 02/01/21 0751 1705 0000 Julian Villeda MD, FACC /nt
--- NOTE | 2021-02-01 09:48 | NUR ---
ASSUMED CARE AT 0700. PATIENT'S FIANCE, ALEXANDRA LUIS, CALLED AND WAS SPOKEN TO FROM [phone] AND SHE WAS UPDATED AND EDUCATED ON THE PATIENT'S CONDITION AND PLAN OF CARE. RECEIVED THE PATIENT'S DPOA FOR FINANCIAL PURPOSES PAPERWORK.
[2021-02-01 12:33] LABS: ABSOLUTE NEUTROPHILS 9.1 thou/uL (1.4-8.2); BASOPHILS 0.1 % (0.0-2.0); EOSINOPHILS 0.1 % (0.0-3.0); HEMATOCRIT 39.2 % (42.0-52.0); HEMOGLOBIN 13.4 gm/dL (14.0-18.0); LYMPHOCYTES 3.3 % (24.0-44.0); MCH 32.2 pg (26.0-34.0); MCHC 34.3 g/dL (28.0-37.0); MCV 93.9 fL (80.0-100.0); MONOCYTES 4.9 % (1.0-8.0); PLATELET COUNT 147 thou/uL (150-400); POLYS 91.6 % (36.0-66.0); RBC 4.17 mil/uL (4.50-6.00); RDW 12.9 % (10.5-14.5); WBC 9.9 thou/uL (4.0-11.0)
[2021-02-01 12:48] LABS: ANION GAP 8 mmol/L (7-16); BUN 24 mg/dL (7-18); CHLORIDE 104 mmol/L (98-107); CO2 25 mmol/L (21-32); CREATININE 0.9 mg/dL (0.7-1.3); GLUCOSE 124 mg/dL (74-106); PHOSPHORUS 1.9 mg/dL (2.6-4.7); POTASSIUM 3.2 mmol/L (3.5-5.1); SODIUM 137 mmol/L (136-145); TROPONIN-I <0.06 ng/mL (<0.06)
[2021-02-01 13:22] LABS: APTT 26.5 Seconds (24.5-32.8); PROTIME 10.4 Seconds (9.3-11.4)
--- NOTE | 2021-02-01 14:38 | NUR ---
chart review. discussed during am rounds. he remains on vent, hypothermia protocol. sig other found at home, and started crp. covid +. cm call lexx chapman, she put cm on speaker phone, cm asked who was on speaker. " his sister val, he on POA paperwork as well. would like to know if can do blood work to test for covid. live in [place] home, 4 set step the level then another set of 4 steps. he independent at home. manage his own medication. he was out late till 2 am, so i was checking on him and letting him rest, then he was face down in the pillow, glad i checked on him"/happy. will cont following as needed for dc needs.
--- NOTE | 2021-02-01 14:57 | EKG ---
[address] [employer] [place] [address] ELECTROCARDIOGRAM REPORT Name: EMMA LOW Room #: 237-P ADM IN M.R.#: [id number] Admission: 01/31/21 Attend Phys: Jayden Ramon Discharge: Date of : 56 Report #: [id number] [facility] Test Date: 2021-02-01 Test Time: 07:21:10 Pat Name: EMMA LOW Department: Room: 237 P Gender: M Transactional Attorney: MYRON : 1960 Requested By: Julian Villeda Order Number: [id number] MD: Kana Coffey Measurements Intervals [place] Rate: 62 P: 14 ND: 196 QRS: -30 QRSD: 132 T: -19 QT: 561 QTc: 570 Interpretive Statements Sinus rhythm Left bundle branch block Compared to ECG 01/31/2021 15:44:11 Sinus tachycardia no longer present Electronically Signed On 02-01-2021 14:57:30 CDT by Kana Coffey [email or web address] <ELECTRONICALLY SIGNED> By: Kana Coffey MD 02/01/21 1457 0 0 Kana Coffey MD /JODY
[2021-02-01 18:53] LABS: ABSOLUTE NEUTROPHILS 8.3 thou/uL (1.4-8.2); BASOPHILS 0.1 % (0.0-2.0); HEMATOCRIT 39.7 % (42.0-52.0); HEMOGLOBIN 13.2 gm/dL (14.0-18.0); LYMPHOCYTES 3.1 % (24.0-44.0); MCH 31.3 pg (26.0-34.0); MCHC 33.3 g/dL (28.0-37.0); MCV 93.9 fL (80.0-100.0); MONOCYTES 5.6 % (1.0-8.0); PLATELET COUNT 138 thou/uL (150-400); POLYS 91.2 % (36.0-66.0); RBC 4.23 mil/uL (4.50-6.00); WBC 9.1 thou/uL (4.0-11.0)
[2021-02-01 19:07] LABS: APTT 31.3 Seconds (24.5-32.8); PROTIME 11.3 Seconds (9.3-11.4)
[2021-02-01 19:14] LABS: ANION GAP 4 mmol/L (7-16); BUN 20 mg/dL (7-18); CALCIUM 7.9 mg/dL (8.5-10.1); CHLORIDE 105 mmol/L (98-107); CO2 28 mmol/L (21-32); CREATININE 0.8 mg/dL (0.7-1.3); GLUCOSE 105 mg/dL (74-106); MAGNESIUM 2.1 mg/dL (1.8-2.4); PHOSPHORUS 3.1 mg/dL (2.6-4.7); SODIUM 137 mmol/L (136-145); TROPONIN-I <0.06 ng/mL (<0.06)
--- NOTE | 2021-02-01 22:55 | NUR ---
CALL FROM VLAD BLUNT APPROXIMATELY 0, ASKING FOR UPDATE. HAD BEEN TOLD BY PROGRAM SERVICES PLANNER THAT ONLY PAPERWORK WAS FINANCIAL DPOA PAPERWORK, AND CM NOTES WERE NOT SPECIFIC ABOUT WHO WAS TO RECIEVE INFORMATION OR NOT. ALEXANDRA STATES THAT SHE EMAILED HEALTHCARE DPOA PAPERWORK TO CM, WAS NOT IN CHART NOR WAS THERE A NOTE CORROBORATING THIS. ALEXANDRA OFFERED TO BRING PAPERWORK TO HOSPITAL HERSELF. THIS RN MET ALEXANDRA IN ER AND RECIEVED PAPERWORK, COPY MADE AND PLACED IN CHART, ORIGINAL PLACED BACK IN ENVELOPE AND WILL PASS ON TO NEXT SHIFT TO GET ORIGINAL PAPERWORK BACK TO [facility]. SISTER PACHECO TRACEY AND FISUNSHINE SMITH ARE NAMED HEALTHCARE DPOA. CALL BACK FROM FAMILY, SPOKE WITH PACHECO MORRIS AND A SON NAMED "MANDA." ANSWERED ALL QUESTIONS WITHIN SCOPE OF PRACTICE AND OUTLINED CURRENT POC WELL TENTATIVE NEXT STEPS PER PROTOCOL AND DRS. NOTES.
[2021-02-02] VITALS (7 sets, daily range): BP systolic 106–138; BP diastolic 61–77
[2021-02-02 05:04] LABS: HEMATOCRIT 39.7 % (42.0-52.0); HEMOGLOBIN 13.3 gm/dL (14.0-18.0); MCH 31.8 pg (26.0-34.0); MCHC 33.4 g/dL (28.0-37.0); MCV 95.1 fL (80.0-100.0); RBC 4.18 mil/uL (4.50-6.00); RDW 13.1 % (10.5-14.5); WBC 10.1 thou/uL (4.0-11.0)
[2021-02-02 05:28] LABS: ALBUMIN 2.7 g/dL (3.4-5.0); CALCIUM 8.1 mg/dL (8.5-10.1); CREATININE 0.8 mg/dL (0.7-1.3); DIRECT BILIRUBIN 0.1 mg/dL (<0.1-0.2); PHOSPHORUS 1.7 mg/dL (2.5-4.9); POTASSIUM 3.4 mmol/L (3.5-5.1); TOTAL BILIRUBIN 0.4 mg/dL (0.2-1.0); TOTAL PROTEIN 6.1 g/dL (6.4-8.2)
[2021-02-02 05:29] LABS: BE(vivo) -4.4 mmol/L (-2 to +3); PCO2 29.9 mmHg (35.0-45.0); PO2 88.4 mmHg (80.0-100.0)
--- NOTE | 2021-02-02 11:26 | NUR ---
please clarify with hospitalist if IVF fluids can be discontinued before starting ordered water flushes. TF goal is 60ml/hr of vital AF 1.2
--- NOTE | 2021-02-02 12:36 | HC ---
[facility] [place] [address] CONSULTATION Name: EMMA LOW Room #: [facility] ADM IN M.R.#: [id number] Admission: 01/31/21 Attend Phys: Chema Romero MD Discharge: Date of : 56 Report #: [id number] THIS REPORT FOR: cc: Chema Romero MD, Neal A. MD Barry,Fritz Ayala MD ~ DATE OF SERVICE: 02/02/2021 INFECTIOUS DISEASE CONSULTATION ATTENDING PHYSICIAN: Dr. Romero. REASON FOR EVALUATION: COVID-19 positive. HISTORY OF PRESENT ILLNESS: Chart reviewed, patient examined. This is a 60-year-old gentleman with chronic pain syndrome, hypertension, who was found by his spouse in bed, not breathing, initiated CPR and was called. He was resuscitated and transferred to the hospital where he was evaluated and was found to have positive drug screen. At that time, a chest x-ray was unremarkable, urinalysis as well. COVID testing was positive; however, he was intubated now on mechanical ventilatory support, FiO2 of 30%. His chest x-ray showed bilateral infiltrates. He is empirically started on remdesivir as well as corticosteroids, also antibacterial with Unasyn due to possibility of aspiration pneumonitis. He is sedated, not responsive at this point. He has been afebrile. ALLERGIES: LISTED TO ZOLOFT AND CYMBALTA. CURRENT MEDICATIONS: Include bupropion, zinc, thiamine, cholecalciferol, ascorbic acid, dexamethasone, Unasyn, remdesivir, alprazolam, levetiracetam, famotidine, had been on pressors with norepinephrine. This has been discontinued. PAST MEDICAL HISTORY: Chronic pain syndrome, hypertension, hyperlipidemia, depression, anxiety. SOCIAL HISTORY: Unknown. FAMILY HISTORY: Noncontributory. REVIEW OF SYSTEMS: Not obtainable. PHYSICAL EXAMINATION: GENERAL: Appears somewhat chronically ill, undernourished, is in [id number]-xr-nljxnvnz distress. He is sedated on the vent. [address] [address] CONSULTATION Name: EMMA LOW Room #: [facility] IN M.R.#: [id number] Admission: 01/31/21 Attend Phys: Chema Romero MD Discharge: Date of : 56 Report #: [id number] VITAL SIGNS: Temperature 97.5, pulse 88, respirations 20, blood pressure is 109/55. SKIN: Warm, dry, no rashes. HEENT: ET and OG in place, has a right-sided upper extremity PICC line. LUNGS: Scattered coarse breath sounds. HEART: Regular. I do not appreciate a murmur. ABDOMEN: Mildly distended, somewhat firm, nontender. No apparent peritoneal signs. GENITOURINARY AND RECTAL: Deferred. LABORATORY DATA: Sputum culture showed moderate mixed upper respiratory tract narda. Urine culture, no growth thus far. Chest x-ray had patchy bilateral airspace infiltrates, noted more primarily on the left. Blood cultures sterile thus far. Electrolytes: Sodium 142, potassium 3, chloride 108, bicarbonate is 21, anion gap of 13, BUN and creatinine 16 and 0.8, AST of 73, ALT of 87. Albumin of 2.1, total protein 6.1. ABGs: pH 7.420, pCO2 of 29.9, pO2 of 88.4, FiO2 of 30%. CBC: White count 10.1, H and H 13.3 and 39.7, platelets 144. Positive coronavirus testing. Lactic acid yesterday was 1.3. PT of 11.0, INR of 1.0. D-dimer elevated at 4.98 ___ of 230. CT of the head, no acute process. ASSESSMENT: Positive coronavirus testing. The patient initially had radiographic changes, presented as a pulseless and not breathing, arrest in the field. He was resuscitated. At this point, it has been complicated by seizures as well. He was placed on broad-spectrum therapy. I think this is reasonable including coronavirus directed therapy. It is not entirely clear if this was a driving force. Clearly, he had polysubstance use. He remains critically ill and is uncertain of the severity of his encephalopathy. Continue supportive care. Wean off as allowed. We will follow. <ELECTRONICALLY SIGNED> By: Fritz Chapin MD 02/02/21 1236 1019 1213 Fritz Chapin MD /nt
--- NOTE | 2021-02-02 14:51 | 2DMMODE ---
[facility] [place] [address] 2 D/M-MODE ECHOCARDIOGRAM Name: EMMA LOW Room #: 237-P ADM IN M.R.#: [id number] Admission: 01/31/21 Attend Phys: Chema Romero MD Discharge: Date of : 56 Report #: [id number] THIS REPORT FOR: cc: Chema Romero MD, Neal A. MD Lundgren, Craig H. MD [facility] Jayden Ramon MD ~ Sex/Age : M/60Y Height/Weight : 188.0cm/90.3kg Patient Name : EMMA LOW Study Date : 2021-02-02 BSA : 2.17? Requesting Name : ECHO STANDARD W/O CONTRAST Date of : 1960 Request Doctor : GIANLUCA Department : CARD --< Approved Report > Study performed: 02/02/2021 09:04:58 EXAM: Comprehensive 2D, Doppler, and color-flow Echocardiogram Patient Location: ICU Room #: 237 Status: routine BSA: 2.17 HR: 94 bpm BP: 110/62 mmHg Rhythm: NSR Other Information Study Quality: Good Indications Arrhythmia Covid 2D Dimensions RVDd: 39.48 mm IVSd: 8.35 (7~11mm) LVOT Diam: 20.25 (18~24mm) LVDd: 43.39 mm PWd: 9.45 (7~11mm) Ascending Ao: 33.50 (22~36mm) LVDs: 26.51 (25~40mm) Aortic Root: 26.86 mm IVC: 12.00 mm Volumes [facility] [address] [place] [address] 2 D/M-MODE ECHOCARDIOGRAM Name: EMMA LOW Room #: 237-P [facility].#: [id number] Admission: 01/31/21 Attend Phys: Chema Romero, Discharge: Date of : 56 Report #: [id number] Left Atrial Volume (Systole) Single Plane 4CH: 43.22 mL Single Plane 2CH: 47.30 mL LA ESV Index: 24.00 mL/m2 Aortic Valve AoV Peak Claudio.: 1.39 m/s AO Peak Gr.: 7.72 mmHg LVOT Max P.86 mmHg LVOT Max V: 1.21 m/s RICCI Vmax: 2.80 cm2 Pulmonary Valve PV Peak Claudio.: 1.23 m/s PV Peak Gr.: 6.07 mmHg Left Ventricle The left ventricle is normal size. There is normal LV segmental wall motion. There is normal left ventricular wall thickness. Left ventricular systolic function is normal. The left ventricular ejection fraction is within the normal range. LVEF is 60-65%. The left ventricular diastolic function is normal. Right Ventricle The right ventricle is normal size. The right ventricular systolic function is normal. Atria The left atrium size is normal. The right atrium size is normal. Aortic Valve The aortic valve is normal in structure. No aortic regurgitation is present. There is no aortic valvular stenosis. Mitral Valve The mitral valve is normal in structure. There is no mitral valve regurgitation noted. No evidence of mitral valve stenosis. Tricuspid Valve The tricuspid valve is normal in structure. There is no tricuspid valve regurgitation noted. Pulmonic Valve The pulmonary valve is normal in structure. There is no pulmonic valvular regurgitation. Great Vessels The aortic root is normal in size. IVC is normal in size and collapses >50% with inspiration. [facility] [address] [place] [address] 2 D/M-MODE ECHOCARDIOGRAM Name: EMMA LOW Room #: 237-P [facility] IN ..#: [id number] Admission: 01/31/21 Attend Phys: Chema Romero, Discharge: Date of : 56 Report #: [id number] Pericardium There is no pericardial effusion. <Conclusion> Left ventricular systolic function is normal. There is normal LV segmental wall motion. LVEF is 60-65%. Normal diastolic function The aortic valve is normal in structure. No aortic regurgitation or stenosis The mitral valve is normal in structure. No mitral valve regurgitation. Pulmonary artery pressure could not be reliably ascertained. There is no pericardial effusion. Electronically Approved : 02/02/2021 14:50:06 By: [id number] 1451 Julian Villeda MD, FACC /
[2021-02-03] VITALS (17 sets, daily range): BP systolic 118–149; BP diastolic 56–79
[2021-02-03 05:53] LABS: HEMATOCRIT 37.2 % (42.0-52.0); HEMOGLOBIN 12.6 gm/dL (14.0-18.0); MCH 32.1 pg (26.0-34.0); MCHC 33.9 g/dL (28.0-37.0); MCV 94.8 fL (80.0-100.0); RBC 3.92 mil/uL (4.50-6.00); RDW 13.4 % (10.5-14.5); WBC 13.2 thou/uL (4.0-11.0)
[2021-02-03 06:08] LABS: ALBUMIN 2.8 g/dL (3.4-5.0); ANION GAP 11 mmol/L (7-16); BUN 25 mg/dL (7-18); CALCIUM 8.3 mg/dL (8.5-10.1); CHLORIDE 107 mmol/L (98-107); CO2 24 mmol/L (21-32); CREATININE 0.8 mg/dL (0.7-1.3); DIRECT BILIRUBIN < 0.1 mg/dL (<0.1-0.2); GLUCOSE 93 mg/dL (74-106); PHOSPHORUS 2.6 mg/dL (2.5-4.9); POTASSIUM 4.2 mmol/L (3.5-5.1); SGOT 66 U/L (15-37); SGPT 66 U/L (30-65); SODIUM 142 mmol/L (136-145); TOTAL BILIRUBIN 0.3 mg/dL (0.2-1.0); TOTAL PROTEIN 6.3 g/dL (6.4-8.2)
--- NOTE | 2021-02-03 07:13 | NUR ---
AT APPROX 2024 THIS RN MET ALEXANDRA BAXTER IN THE ER. SHE WAS WITH 2 OF THE PTS SONS. I RETURNED HIS DPOA PAPERWORK TO ALEXANDRA. THEY GAVE ME AN IPAD AND SPEAKERS SO THAT THE PT COULD LISTEN TO HIS FAVORITE SONGS. AT THIS TIME I ALSO GAVE A BRIEF UPDATE ON THE PTS CONDITION TO ALEXANDRA. AT 2206 PACHECO ALEXY FACETIMED THE PT FOR 17 MINUTES. AT APPROX 0510 PACHECOToshia TRACEY CALLED THE NURSES STATION ASKING FOR AN UPDATE ON HER BROTHER. I EXPLAINED TO HER THAT I WAS ONLY ALLOWED TO UPDATE ALEXANDRA AT THIS TIME SO SHE WOULD HAVE TO ASK ALEXANDRA DIRECTLY FOR UPDATES. PACHECO WAS VERY UNDERSTANDING AND GRACIOUS.
[2021-02-03 11:18] LABS: BE(vivo) -4.9 mmol/L (-2 to +3); HCO3 20.8 mmol/L (22.0-26.0); PCO2 40.6 mmHg (35.0-45.0); pH 7.327 (7.360-7.450); sO2 95.8 % (92.0-98.0)
--- NOTE | 2021-02-03 12:40 | NUR ---
Case discussed in ICU rounds. Pt being dc'd from enhanced ISO today due to covid pcr threshold (may be recovered pt or false positive). Sign other Happy has provided the pt's DPOA for health care document and nursing notes it is on the chart. Poss EEG pending sedation vacation resopnse. Pt remains on the vent. Will follow.
--- NOTE | 2021-02-03 13:58 | NUR ---
ASSUMED CARE AT 0700. PATIENT'S FIANCE, ALEXANDRA LUIS, CALLED AND WAS SPOKEN TO FROM [phone] AND SHE WAS UPDATED AND EDUCATED ON THE PATIENT'S CONDITION AND PLAN OF CARE.
[2021-02-04] VITALS (25 sets, daily range): BP systolic 89–133; BP diastolic 44–77
--- NOTE | 2021-02-04 03:23 | NUR ---
AT 2035 THE PTS DPOA, ALEXANDRA LUIS, CALLED FOR AN UPDATE ON THE PTS CONDITION. SHE ALSO HAD QUESTIONS ABOUT WHEN AND WHY THE NEUROLOGIST WAS GOING TO CALL HER. I EDUCATED HER ABOUT THE PT CURRENT STATUS AND PROVIDED EDUCATION ON VARIOUS PROCEDURES AND MEDICATIONS WHEN ASKED. THIS CONVERSATION LASTED 13 MINUTES 40 SECONDS.
--- NOTE | 2021-02-04 04:56 | NUR ---
BED ERROR: AT SOMEPOINT THE BED WAS ZEROED WITH THE PT OCCUPYING IT. THERE IS NOW NO WAY TO GET ACCURATE DAILY WTS ON THE PT. THE PT CAME IN AT 90.3 KG. THIS RN ESTIMATED 93 KG SO THAT FROM THIS DAY FORWARD WE CAN MONITOR HIS DAILY WT.
[2021-02-04 05:15] LABS: HEMATOCRIT 32.5 % (42.0-52.0); HEMOGLOBIN 11.6 gm/dL (14.0-18.0); MCHC 35.6 g/dL (28.0-37.0); MCV 95.3 fL (80.0-100.0); RBC 3.41 mil/uL (4.50-6.00); RDW 13.1 % (10.5-14.5); WBC 10.1 thou/uL (4.0-11.0)
[2021-02-04 05:39] LABS: ALBUMIN 2.4 g/dL (3.4-5.0); ANION GAP 8 mmol/L (7-16); BUN 24 mg/dL (7-18); CALCIUM 7.9 mg/dL (8.5-10.1); CHLORIDE 102 mmol/L (98-107); CO2 25 mmol/L (21-32); CREATININE 0.6 mg/dL (0.7-1.3); DIRECT BILIRUBIN < 0.1 mg/dL (<0.1-0.2); GLUCOSE 122 mg/dL (74-106); PHOSPHORUS 2.5 mg/dL (2.5-4.9); POTASSIUM 3.9 mmol/L (3.5-5.1); SGOT 99 U/L (15-37); SGPT 71 U/L (30-65); SODIUM 135 mmol/L (136-145); TOTAL BILIRUBIN 0.6 mg/dL (0.2-1.0); TOTAL PROTEIN 5.6 g/dL (6.4-8.2)
--- NOTE | 2021-02-04 19:30 | NUR ---
02/04/21 ASSUMED PATIENT CARE AT 0700. WEANED DOWN SEDATION FOR EEG. EEG OBTAINED. INCREASED SEDATION LATER IN SHIFT DUE TO TACHYPNEA, AT THIS TIME PATIENT ALSO DEVELOPED SOME POSTURING. PATIENT DID NOT FOLLOW ANY COMAMNDS OR SHOW ANY TYPE OF PURPOSEFUL MOVEMENT WHEN SEDATION WAS TITRATED DOWN. PRESENT AT BEDSIDE AND UPDATED.
--- NOTE | 2021-02-04 20:15 | NUR ---
SV FROM 1999 TO 2011. PT INSTANTLY BECOMES TACHYPENIC, RR UP TO 47 BPM, SEDATION TURNED BACK ON. NOT TOLERATING
[2021-02-05] VITALS (43 sets, daily range): BP systolic 96–126; BP diastolic 48–71
--- NOTE | 2021-02-05 03:04 | NUR ---
PT TEMPERATURE ELEVATING OVER SEVERAL HOURS, TYLENOL GIVEN WITHOUT EFFECT. ICE PACKS PLACED, ROOM COOLED. TEMP CONTINUES TO ELEVATE, MAINTAINING AROUND 38.5. CALL TO DR. JAMIL WITH CONCERN FOR NEUROGENIC FEVER, DUE TO THE INEFFICACY OF TYLENOL. NO PARAMETERS GIVEN, WAS REQUESTED TO CALL ELECTRONIC SECURITY SPECIALIST FOR POSSIBLE SEPSIS AND TO EITHER OBTAIN MRI OR CT HEAD - WHICHEVER ELECTRONIC SECURITY SPECIALIST IS COMFORTABLE WITH - ON AM SHIFT. UPDATE WAS ALSO GIVEN ON SEDATION AND VS, OVER BREATHING VENT AND REQURING INCREASED SEDATION TO CONTROL MYOCLONUS. CALL TO DR. FRNACO, GAVE UPDATE REGARDING TEMP, VS AND CONVERSATION WITH DR. JAMIL. ORDERS RECIEVED FOR BC. NO PARAMETERS GIVEN FOR TEMP AGAIN, CONCERN EXPRESSED BY DR. FRANCO THAT THE ARCTIC SUN HAD BEEN MASKING TEMPERATURE, AND TO ALLOW BODY TO REGULATE AT THIS TIME, MAY GIVEN TYLENOL IF DESIRED.
[2021-02-05 05:18] LABS: HEMATOCRIT 35.5 % (42.0-52.0); MCH 32.2 pg (26.0-34.0); MCHC 33.7 g/dL (28.0-37.0); MCV 95.5 fL (80.0-100.0); RBC 3.71 mil/uL (4.50-6.00); WBC 8.2 thou/uL (4.0-11.0)
[2021-02-05 05:33] LABS: ALBUMIN 2.4 g/dL (3.4-5.0); CALCIUM 8.6 mg/dL (8.5-10.1); CREATININE 0.7 mg/dL (0.7-1.3); PHOSPHORUS 3.5 mg/dL (2.5-4.9)
--- NOTE | 2021-02-05 10:25 | NUR ---
cm on pod for rounds, bedside nurse passed on that happy wanted to talk with cm. happy at bedside, cm visited with her at door, cm cont to wear face mask and shield during visit. question out val pt sister being able to visit since she is the 2nd dpoa. cm re-educate on policy and would have nurse check with nurse operations manager assistant. cm passed on to bedside nurse.
--- NOTE | 2021-02-05 19:18 | NUR ---
ASSUMED CARE 0700. PT ABLE TO CT AND MRI TODAY. SEDATION VACATION FOLLOWING MRI... PT W/STRONGER GAG AND COUGH THAN PREVIOUSLY REPORTED ALSO, BITING ET TUBE. PT SIGNIFICANT OTHER AT BEDSIDE THROUGHOUT DAY. UPDATED REGARDING PLAN OF CARE. VSS. BM TODAY. TMAX 100.8. PROGRESSING IN NURSING PLAN OF CARE.
--- NOTE | 2021-02-05 23:35 | NUR ---
SEDATION TURNED OFF COMPLETELY AT 2320, AT 2332, NOTICED RAPID MOVEMENT OF L ARM BACK AND FORTH. GENERALIZED "TREMOR" OF WHOLE BODY. MOVEMENT CEASED AFTER 15-20 SECONDS, HOWEVER, IT BEGAN AGAIN IN APPROXIMATELY 15 SECONDS. PUPILS 3, EYES DEVIATED UP, DID NOT NOTICE ANY OTHER MOVEMENT IN PT OTHER LIMBS, ONLY L ARM MOVEMENT. HR 90'S , SATS REMAINED >90%. OBSERVED BY OTHER STAFF RNS. SEDATION TURNED BACK ON AT THIS TIME TO CONTROL SEIZURE LIKE ACTIVITY
[2021-02-06] VITALS (22 sets, daily range): BP systolic 112–151; BP diastolic 55–82
[2021-02-06 05:01] LABS: HEMATOCRIT 32.7 % (42.0-52.0); HEMOGLOBIN 11.1 gm/dL (14.0-18.0); MCHC 33.9 g/dL (28.0-37.0); MCV 94.4 fL (80.0-100.0); RBC 3.47 mil/uL (4.50-6.00); RDW 13.3 % (10.5-14.5); WBC 6.8 thou/uL (4.0-11.0)
[2021-02-06 05:13] LABS: ALBUMIN 2.1 g/dL (3.4-5.0); CALCIUM 8.6 mg/dL (8.5-10.1); CREATININE 0.8 mg/dL (0.7-1.3); PHOSPHORUS 4.5 mg/dL (2.5-4.9)
--- NOTE | 2021-02-06 06:30 | NUR ---
NOTED "TREMBLING" AND DISTINCTIVE REPEATITIVE TWITCHING IN FACE, L ARM AND TORSO SEVERAL TIMES. TOLERATES TURNS WELL. NO PURPOSEFUL MOVEMENT NOTED, FREQUENT YAWNING STARTING AT MN. HR REMAINS STABLE, FEBRILE, T MAX 38.7, T LOWEST 37.9. TOLERATING TF.
--- NOTE | 2021-02-06 16:22 | NUR ---
PT INTUBATED AND SEDATED. VENT SETTINGS UNCHANGED. SEDATION VACATION PERFORMED, PT BECAME DIAPHRETIC, AND BEGAN TO HAVE MYOCLONIS AT [phone] ATIVAN GIVEN AND MYOCLONIS STOPPED. PT ALSO HAD TWO MORE MYOCLONIS MOMENTS, ONE AT 5912-4055 AND AGAIN AT 5921-3150. ATIVAN GIVEN BOTH TIMES. EEG DONE AT BEDSIDE, RESULTS NOT YET AVAILABLE. MTN CALLED DUE TO GCS OF 3. PT DOES NOT WITHDRAW TO PAIN, NO GAG REGLEX, DOES HAVE A POSITIVE COUGH AND BREATHS OVER THE VENT. PUPILS REACTIVE TO LIGHT. OCULOCEPHALIC REFLEX INTACT. TUBE FEEDS WERE DECREASED DUE TO INCREASING OGT RESIDUALS. PT FEBRILE, ADEQUATE UOP, POSITIVE BM. PICC LINE IN PLACE AND FUNCTIONING WELL. VLAD AT BEDSIDE, HER AND PT HAVE BEEN UPDATED AND EDUCATED ON PT CONDITION AND POC. PT NOT PROGRESSING TOWARDS POC.
[2021-02-06 18:18] LABS: URINE BILIRUBIN NEGATIVE (Negative); URINE BLOOD 1+ (Negative); URINE CLARITY CLEAR; URINE COLOR YELLOW; URINE GLUCOSE-RANDOM* NEGATIVE (Negative); URINE KETONES NEGATIVE (Negative); URINE LEUKOCYTES-REFLEX NEGATIVE (Negative); URINE NITRITE-REFLEX NEGATIVE (Negative); URINE PROTEIN (DIPSTICK) 1+ (Negative)
[2021-02-06 18:54] LABS: BACTERIA-REFLEX 1-9 Few /HPF (None Seen); CASTS None Seen /LPF (None Seen); SQUAMOUS None Seen /LPF (0-3); URINE RBC 3-10 Few /HPF (0-2); URINE WBC-REFLEX 0-5 Rare /HPF (0-5)
[2021-02-06 18:55] LABS: CRYSTALS None Seen /LPF (None Seen)
[2021-02-07] VITALS (57 sets, daily range): BP systolic 122–166; BP diastolic 53–97
[2021-02-07 04:54] LABS: CALCIUM 8.7 mg/dL (8.5-10.1); CREATININE 0.7 mg/dL (0.7-1.3); POTASSIUM 3.9 mmol/L (3.5-5.1)
--- NOTE | 2021-02-07 06:12 | NUR ---
NOTED SEIZURE LIKE ACTIVITY X4, LASTING 30SECONDS- 2MIN. ATIVAN GIVEN, PROPOFOL INCREASED AT ONE TIME TO CONTROL MOVEMENTS, DECREASED BACK TO 30MCG. MOVEMENT NOTED PRIMARILY IN L SIDE OF BODY, L ARM AND FACE. GENERALIZED MYOCLONUS/"TREMORING" NOTED AT TIMES. DUE TO INCREASED SEIZURE LIKE ACTIVITY DURING DAY AND THIS SHIFT, A SV WAS NOT DEEMED TO BE APPROPRIATE. TMAX 38.6, SR, BP MILDLY ELEVATED. TOELRATING TF. NO RESPONSE TO PAINFUL STIMULI, COPIOUS ORAL SECRETIONS
--- NOTE | 2021-02-07 10:48 | EEG ---
[facility] [place] [address] ELECTROENCEPHALOGRAM Name: EMAM LOW Room #: 237-P ADM IN M.R.#: [id number] Admission: 01/31/21 Attend Phys: Chema Romero MD Discharge: Date of : 56 Report #: [id number] THIS REPORT FOR: //name// DATE OF SERVICE: 02/04/2021 This patient's EEG was done by minimizing the sedation. It was not possible to completely eliminate sedation as I understand. EEG was done by placing the electrode by standard 10-20 system of electrode placement. Both referential and sequential montages were used. This is a severely abnormal EEG. It mainly demonstrates triphasic waves, which are frontally predominant. In between, the patient has very little activity, but has a lot of artifact making it difficult to interpret. Photic stimulation is unremarkable. IMPRESSION: This is a severely abnormal EEG, demonstrating triphasic waves, which are frontally predominant. Although they were originally described with hepatic encephalopathy, but the patient's liver function is only mildly abnormal and it has been well described in hypoxic encephalopathy. Situation becomes complicated because the patient is still on sedation. An EEG when the patient is off sedation and/or an imaging study of the brain like MRI may be done in this patient as clinically indicated. This patient's situation is difficult and I will discuss with Dr. Romero and family again. He is somewhat hypotensive this afternoon and I had to take him down for MRI, but if the patient's blood pressure is stabilized, we might try to arrange one tomorrow. <ELECTRONICALLY SIGNED> By: Danny Berman MD 02/07/21 1048 1357 1417 Danny Berman MD /nt
--- NOTE | 2021-02-07 10:48 | EEG ---
[facility] [place] [address] ELECTROENCEPHALOGRAM Name: EMMA LOW Room #: 237-P ADM IN M.R.#: [id number] Admission: 01/31/21 Attend Phys: Chema Romero MD Discharge: Date of : 56 Report #: [id number] THIS REPORT FOR: //name// DATE OF SERVICE: 02/06/2021 This repeat EEG was done for comparison because last EEG has demonstrated frontally predominant triphasic waves. The purpose of EEG was to compare with the last EEG and also try to evaluate if those triphasic waves were more likely secondary to encephalopathy or because of seizure by changing the propofol. EEG was done by placing the electrode by standard 10-20 system of electrode placement. Both referential and sequential montages were used for recording. The patient's background activity is showing at least moderate amount of activity about 5 Hz and 15 microvolt. Triphasic waves were much less prominent. They demonstrated a specific pattern. The patient's propofol was turned off and the patient has pretty prominent triphasic waves and they basically disappear when the propofol is turned off again. Photic stimulation is unremarkable. IMPRESSION: This is a severely abnormal EEG consistent with encephalopathy. Attempt was made to see if the triphasic waves become better by propofol and reappear by taking the propofol off and that appeared to be the case, that will indicate that the patient's triphasic waves were probably because of seizures and presently it is desirable to treat the patient as a seizure disorder patient. The patient's MRI of the brain was reported as normal. Dr. Ann reviewed the MRI films today and he indicated that his impression was that it was abnormal. I reviewed the films and I agree with him that it looks like that the diffusion weighted images are abnormal. That question need to be further addressed and I called Dr. Romero the admitting doctor and discuss that with him. He said he is not barrel rifler button today. So, I called Dr. Crawford who is covering this patient and address that with him. I also called Dr. Ann and discussed this EEG with him. Thank you very much for this referral and if you have any question, please feel free to contact me. <ELECTRONICALLY SIGNED> By: Danny Berman MD 02/07/21 1048 1431 1443 Danny Berman MD /nt
--- NOTE | 2021-02-07 19:25 | NUR ---
PT INTUBATED AT SEDATED, VENT SETTINGS UNCHANGED. SEE ASSESSMENT FOR NEUROLOGICAL EXAM. PT FEBRILE, POLYUREA, TOLERATIING TUBE FEEDS AT GOAL, 2 BM'S, PICC LINE FUNCTIONING WELL. PT AND FIANCE WERE THOUROUGHLY UPDATED AND EDUCATED ON PT CONDITION AND POC. PT NOT PROGRESSING TOWARDS POC.
[2021-02-08] VITALS (34 sets, daily range): BP systolic 131–163; BP diastolic 67–93
[2021-02-08 03:46] LABS: HEMATOCRIT 35.4 % (42.0-52.0); MCH 31.7 pg (26.0-34.0); MCHC 33.9 g/dL (28.0-37.0); MCV 93.4 fL (80.0-100.0); RBC 3.79 mil/uL (4.50-6.00); RDW 12.8 % (10.5-14.5); WBC 11.1 thou/uL (4.0-11.0)
[2021-02-08 03:59] LABS: CALCIUM 8.9 mg/dL (8.5-10.1); CREATININE 0.7 mg/dL (0.7-1.3); POTASSIUM 3.9 mmol/L (3.5-5.1)
--- NOTE | 2021-02-08 06:37 | NUR ---
Patient having a large amount of liquid stool throughout night. Fecal management system placed. Vent settings unchanged. Plan for EEG today. Not progressing towards goals.
--- NOTE | 2021-02-08 10:27 | NUR ---
ASSUMED CARE AT 0700. PATIENT'S FIANCE, ALEXANDRA LUIS, CAME TO VISIT THE PATIENT IN ROOM FROM [phone].
--- NOTE | 2021-02-08 13:31 | NUR ---
chart review, discussed during am rounds. veronica happy at bedside. he remains on vent, nutritional support. eeg nicanor for today. will cont following as needed for dc needs.
--- NOTE | 2021-02-08 21:52 | NUR ---
This RN spoke with Rylie, at 2129. Updated on plan of care and patient status. Called back on hospital iPad at 2139 so Rylie could facetime patient. Facetimed for 15 minutes.
[2021-02-09] VITALS (28 sets, daily range): BP systolic 140–174; BP diastolic 80–96
--- NOTE | 2021-02-09 01:14 | NUR ---
Patient vomited at 0045 shortly after turning. PRN zofran given. Will monitor chest xray this morning and continue to monitor.
--- NOTE | 2021-02-09 05:45 | NUR ---
Patient had large amounts of emesis between 0145 and 0300. This RN placed tube feedings on hold and connected patients OG to LIS. Gastric contents were a mix of bile and undigested contents. Then lots of blood tinged contents were removed. This RN got a stat KUB and CXR for fear of aspiration or gastric bleed. Per radiology's report, no abnormalities found. OG tube remains to LIS. Will continue to watch. Pt not progressing towards goals.
--- NOTE | 2021-02-09 11:44 | NUR ---
DIPRIVAN DRIP INFUSING @ 60MCG/KG/MIN. WHEN PUMP STOPS DUE TO LOW VOLUME, WITHIN A FEW MINUTES, PT HAS SEIZURE THAT CAUSES TREMORS TO UPPER HEAD, NECK AND UPPER BODY, WITH NO NOTICABLE UPPER EXTREMITY POSTURING NOTED. DR. PHAM UPDATED DURING ROUNDING. DR. FRANCO UPDATED DURING GRAND ROUNDS. DR. FRANCO STATED HE WILL CHANGE THE PROPOFOL TO VERSED TO BETTER MANAGE THE SEIZURES.
--- NOTE | 2021-02-09 16:01 | NUR ---
DR. HILL SPOKE WITH PT'S SIGNIFICANT OTHER AT LENGTH OUTSIDE THE ROOM. DISCUSSED EEG AND MRI RESULTS AND PT GRIM PROGNOSIS.
--- NOTE | 2021-02-09 18:10 | NUR ---
PT REQUIRING VERSED W/ DIPRIVAN FOR CONTROL OF CONSTANT SEIZURE ACTIVITY. PT HAS WEAK GAG, STRONG COUGH AND WEAK CORNEAL REFLEXES. PT BREATHES OVER THE VENTILATOR. PT'S FIANCE, HAPPY, REMAINED AT BEDSIDE FOR MOST OF THE DAY. OVERALL PROGNOSIS IS GRIM AND PT NOT PROGRESSING TOWARD GOALS.
--- NOTE | 2021-02-09 19:09 | EEG ---
[facility] [place] [address] ELECTROENCEPHALOGRAM Name: EMMA LOW Room #: 237-P ADM IN M.R.#: [id number] Admission: 01/31/21 Attend Phys: Chema Romero MD Discharge: Date of : 56 Report #: [id number] THIS REPORT FOR: //name// DATE OF SERVICE: 02/08/2021 This patient's EEG was done for comparison with the last EEG done yesterday. EEG was done by placing the electrode by standard 10-20 system of electrode placement. Both sequential and reference montages were used for recording. This patient's EEG continued to demonstrate what looks like frontally predominant triphasic waves, which are bilateral. They are worse than yesterday. Today, the EEG was done on propofol and even then the EEG continued to demonstrate prominent epileptiform activity on both sides. Consideration was given that it is bilateral PLEDs and that is a possibility. Background activity continued to be very poorly formed and goes about 5 Hz and 20 microvolt. Photic stimulation is unremarkable. IMPRESSION: This is a severely abnormal EEG, which continues to demonstrate bilateral epileptiform discharges. The EEG is worse than yesterday because the epileptiform discharges are much more pronounced than yesterday and much more persistent. Consideration was given that these can be bilateral PLEDs but comparing it with the last EEG where they do become better, these appeared to be more bilateral epileptiform discharges, but periodic lateralizing epileptiform discharges bilateral is also a possibility. Unfortunately, EEG is worse than yesterday and these discharges are present even when the patient was on propofol. Clinical correlation and further workup can be done as clinically indicated. The report was called to Dr. Lantigua neurologist who was covering the Neurology service this week. <ELECTRONICALLY SIGNED> By: Danny Berman MD 02/09/21 1909 1713 1721 Danny Berman MD /nt
--- NOTE | 2021-02-09 21:11 | NUR ---
This RN spoke to Rylie, braden sister at 2099 to discuss patient status and updated on plan of care. RN then set up facetime between sister and patient at 2114. Facetimed for 15 minutes.
[2021-02-10] VITALS (23 sets, daily range): BP systolic 122–174; BP diastolic 68–94
[2021-02-10 05:32] LABS: CALCIUM 8.5 mg/dL (8.5-10.1); CREATININE 0.6 mg/dL (0.7-1.3); POTASSIUM 3.8 mmol/L (3.5-5.1)
[2021-02-10 05:56] LABS: HEMATOCRIT 35.6 % (42.0-52.0); HEMOGLOBIN 12.2 gm/dL (14.0-18.0); MCHC 34.3 g/dL (28.0-37.0); MCV 93.3 fL (80.0-100.0); RBC 3.81 mil/uL (4.50-6.00); RDW 12.7 % (10.5-14.5)
--- NOTE | 2021-02-10 17:00 | NUR ---
VLAD MORRIS PRESENT DURING DAY. UPDATED ON ALL CARES PROVIDED, ANSWERED QUESTIONS. PT MOVED T0 ICU #239 PER ICU BED ON VENT WITH RT AND RN ASSIST. DR. HILL, NEURO PRESENT. PER ALEXANDRA'S REQUEST, DR. HILL WOULD LIKE TO HAVE A FAMILY CONFERENCE (HERE AT THE HOSPITAL, IF POSSIBLE) AFTER PT'S MRI THIS MONDAY. SPOKE WITH INDIRA PAVON, POLE PEELING MACHINE OPERATOR HELPER, STATUS UNDECIDED AT THIS TIME.
[2021-02-11] VITALS (24 sets, daily range): BP systolic 126–183; BP diastolic 65–91
[2021-02-11 04:43] LABS: BE(vivo) 1.7 mmol/L (-2 to +3); HCO3 24.9 mmol/L (22.0-26.0); PCO2 34.9 mmHg (35.0-45.0); PO2 97.7 mmHg (80.0-100.0); pH 7.472 (7.360-7.450); sO2 97.8 % (92.0-98.0)
[2021-02-11 05:51] LABS: HEMATOCRIT 37.2 % (42.0-52.0); HEMOGLOBIN 12.6 gm/dL (14.0-18.0); MCH 31.4 pg (26.0-34.0); MCHC 33.8 g/dL (28.0-37.0); MCV 92.9 fL (80.0-100.0); RBC 4.01 mil/uL (4.50-6.00); RDW 12.7 % (10.5-14.5); WBC 18.6 thou/uL (4.0-11.0)
[2021-02-11 06:11] LABS: CALCIUM 8.8 mg/dL (8.5-10.1); CREATININE 0.6 mg/dL (0.7-1.3); POTASSIUM 3.6 mmol/L (3.5-5.1)
--- NOTE | 2021-02-11 09:00 | NUR ---
ASSUMMED CARE OF THIS PATIENT FROM CELSA CARCAMO AT 0700 THIS AM. PATIENT NOTED TO HAVE 400 ML OR GREATER HOURLY URINE OUTPUT.
--- NOTE | 2021-02-11 11:15 | NUR ---
S/O HAPPY IN TO VISIT. DR BALLESTEROS IN EARLIER AND NEUROLOGIST SPOKE WITH HER CONCERNING THE PATIENT'S STATUS. INFORMED THAT WE WILL BE ABLE TO DO THE MRI TODAY
--- NOTE | 2021-02-11 11:58 | NUR ---
discussed during am rounds. possible going for mri today and then family going to talk with MD tomorrow. increased amount of urine output. remains on vent. fiance happy not here. will cont following as needed for dc needs.
--- NOTE | 2021-02-11 14:05 | EEG ---
[facility] [address] [place] [address] ELECTROENCEPHALOGRAM Name: EMMA LOW Room #: 239-P ADM IN M.R.#: [id number] Admission: 01/31/21 Attend Phys: Chema Romero MD Discharge: Date of : 56 Report #: [id number] THIS REPORT FOR: //name// DATE OF SERVICE: 01/31/2021 HISTORY: The patient is a 60-year-old male with concern for anoxic encephalopathy. The patient is having jerking of the face, arms and legs followed by quiet periods; some of these jerking episodes are brought on by stimulation. DESCRIPTION OF PROCEDURE: The record consists of very low amplitude activity, difficult to count. The patient is on propofol 10 mcg, but the quiet periods, once the propofol was increased to 20 mcg lasted as long as 45 seconds followed by spikes/polyspike and wave activity, which lasted 10-15 seconds followed immediately by periods of silence. No focal abnormalities or clear epileptiform discharges or episodes consisting of a crescendo/decrescendo pattern as one might see with a seizure were noted on the EEG. IMPRESSION: This is an abnormal adult record consistent with myoclonus. A repeat EEG in 24-48 hours is recommended. <ELECTRONICALLY SIGNED> By: Ivana Aquino DO 02/11/21 1405 1817 1900 Ivana Aquino DO /nt
--- NOTE | 2021-02-11 14:05 | HC ---
[facility] [place] [address] CONSULTATION Name: EMMA LOW Room #: 239-P ADM IN M.R.#: [id number] Admission: 01/31/21 Attend Phys: Chema Romero MD Discharge: Date of : 56 Report #: [id number] THIS REPORT FOR: cc: Chema Romero MD, Neal A. MD [place], Roxane S. DO ~ NEUROLOGY CONSULTATION HISTORY OF PRESENT ILLNESS: The patient is a 60-year-old male who was found by his . She states that he was lying in bed and had been sleeping, when she went to check on him 2 hours later, she saw that he was face down in his pillow. She went to touch him, he was warm, but when she turned him over, he was purple. He had been sleeping on a tempur-pedic pillow. The patient has back pain and has been prescribed medications including fentanyl, oxycodone, Xanax and Adderall. The patient explained to the Emergency Room physician that he takes his medication in a very regimented fashion. The night before this event, the patient drank a 6th of a bottle of scotch and went to bed around 1:30 or 2 a.m. They sleep in different rooms. She got up at 10:30 this morning to make him coffee. He was in bed, slurring his speech. She decided to let him sleep and when she checked on him 2 hours later, that is when she noticed after turning him over that his face was purple. As soon as she turned him over, she began doing chest compressions and called 911. When the patient came to the Emergency Room, he was still protecting his airway, but eventually began to have episodes of jerking of the extremities. He is now intubated to protect his airway and at the time of this dictation, he is on 20 of propofol. According to the information from EMS, the patient was shocked. When the paramedics arrived, he was in asystole. While enroute to the hospital, he had ROCS. PAST MEDICAL HISTORY: Hypertension, hyperlipidemia, depression/anxiety, chronic pain. PAST SURGICAL HISTORY: Right elbow surgery, right wrist fracture, vasectomy. MEDICATIONS: Benicar 40 mg daily, rosuvastatin 10 mg daily, hydrocodone 5 mg q.4 hours p.r.n. pain, testosterone 5 grams daily, Nexium 40 mg daily, bupropion XL 300 mg daily, alprazolam 0.5 mg t.i.d., oxycodone IR 10 mg q.4 hours p.r.n. pain, fentanyl q.48 hours, Adderall 30 mg b.i.d., oxycodone 10 mg q.4 hours p.r.n. pain, budesonide 8.43 mL nasally daily. ALLERGIES: DULOXETINE and SERTRALINE. PHYSICAL EXAMINATION: [facility] [address] [place] [address] CONSULTATION Name: EMMA LOW Room #: 239-P [facility] IN M.R.#: [id number] Admission: 01/31/21 Attend Phys: Chema Romero MD Discharge: Date of : 56 Report #: [id number] VITAL SIGNS: Temperature 35.8, pulse rate 110, respiratory rate 28, blood pressure 83/46, bedside pulse oximetry 99% on 15 liters. LABORATORY DATA: Hematology: White blood cell count 10.1, hemoglobin 14.1, hematocrit 41.2, MCV 94.9, platelet count 203,000. Urinalysis, 1+ protein, 2+ blood. Blood gas on arrival, pH 7.339, pCO2 31.7, pO2 71.1, oxygen saturation 93.6. Chemistry: Sodium 136, potassium 3.6, chloride 98, carbon dioxide 25, BUN 31, creatinine 1.7, GFR 41, glucose 165, calcium 8.5, magnesium 2.4, total bilirubin 0.3, AST 133, ALT 142, alkaline phosphatase 58. Toxicology positive for opiates, amphetamines, and benzodiazepines. Serum alcohol level 17. IMAGING: CT scan of the head demonstrates no acute intracranial process. NEUROLOGIC EXAMINATION: The patient is on propofol 10 mcg. Pupils are small and not reactive to light. Corneal reflexes are absent. Oculocephalic reflex is absent. Motor exam demonstrates no spontaneous movements of the extremities. Plantar responses are mute. Intermittently, the patient is having significant jerking of the face, arms and legs lasting anywhere from 10-15 seconds. 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 Typically, this comes on with a significant anoxic injury. I did speak to his and let her know what is going on. The patient is about to be transferred to the ICU. The dose of propofol will need to be increased. He is going on a cooling protocol, so a paralyzing agent will also be added. He has received one dose of levetiracetam at approximately 1600 hours and will need another dose every 12 hours thereafter. Once the warming protocol is initiated, then the EEG can be repeated for prognostication. I thank you for your kind referral of the patient. <ELECTRONICALLY SIGNED> By: Ivana Aquino DO 02/11/21 1405 1813 0108 Ivana Aquino DO /rafiq
--- NOTE | 2021-02-11 14:44 | NUR ---
PATIENT PRESENTLY HAVING HEAD MRI ACCOMPANIED BY THIS NURSE AND RT.
--- NOTE | 2021-02-11 19:00 | NUR ---
PATIENT IS NOT PROGRESSING TOWARDS OUTCOME GOALS HE IS ONLY DEMONSTRATING BASIC REFLEXES OF COUGH, GAG AND CORNEAL. SISTER PEDRO IN TO VISIT BRIEFLY. UPDATED HER AND REASSURANCE GIVEN.
[2021-02-12] VITALS (22 sets, daily range): BP systolic 117–155; BP diastolic 62–84
[2021-02-12 04:56] LABS: HEMOGLOBIN 11.6 gm/dL (14.0-18.0); MCH 31.8 pg (26.0-34.0); MCHC 34.2 g/dL (28.0-37.0); MCV 92.9 fL (80.0-100.0); RBC 3.66 mil/uL (4.50-6.00); RDW 12.5 % (10.5-14.5); WBC 9.1 thou/uL (4.0-11.0)
[2021-02-12 05:14] LABS: CALCIUM 8.7 mg/dL (8.5-10.1); CREATININE 0.6 mg/dL (0.7-1.3); POTASSIUM 3.5 mmol/L (3.5-5.1)
--- NOTE | 2021-02-12 10:53 | NUR ---
chart review. happy and sister val will have family meeting today with dr em around 1300. cont on vent, no anticipated dc over the weekend. cm spoke with sister val, this am rt seeing if she can visit before meeting. bedside nurse checking with unit nurse manager hotel.
[2021-02-13] VITALS (23 sets, daily range): BP systolic 111–157; BP diastolic 64–85
[2021-02-13 05:19] LABS: HEMATOCRIT 33.8 % (42.0-52.0); HEMOGLOBIN 11.7 gm/dL (14.0-18.0); MCHC 34.6 g/dL (28.0-37.0); MCV 92.5 fL (80.0-100.0); RBC 3.65 mil/uL (4.50-6.00); RDW 12.6 % (10.5-14.5); WBC 8.8 thou/uL (4.0-11.0)
--- NOTE | 2021-02-13 05:19 | NUR ---
NO RESPONSE, TOLERATING TURNS WELL, NEGATIVE GAG, POSITIVE COUGH. LARGE SECRETIONS. NO MYOCLONUS NOTED THIS SHIFT ON CURRENT SEDATION SETTINGS. NOT POGRESSING TOWARD PLAN OF CARE
[2021-02-13 05:35] LABS: CALCIUM 8.8 mg/dL (8.5-10.1); CREATININE 0.6 mg/dL (0.7-1.3); POTASSIUM 3.8 mmol/L (3.5-5.1)
--- NOTE | 2021-02-13 07:23 | NUR ---
ASSUMMED CARE OF THIS PATIENT FROM THE NIGHT NURSE AT 0700.
--- NOTE | 2021-02-13 11:30 | NUR ---
SEDATTION VACATION FROM 1030 TO 1115. EYES OPEN AND BLINKING, NO PURPOSEFUL MOVEMENT OR ABILITY TO FOLLOW COMMANDS NOTED. PLEASE REFER TO 1100 ASSESSMENT.
--- NOTE | 2021-02-13 19:00 | NUR ---
PATIENT IS NOT PROGRESSING TOWARDS OUTCOME GOALS HE REMAINS UNRESPONSIVE ON THE VENTILATOR.
[2021-02-14] VITALS (23 sets, daily range): BP systolic 126–153; BP diastolic 72–85
[2021-02-14 05:18] LABS: HEMATOCRIT 33.8 % (42.0-52.0); HEMOGLOBIN 11.5 gm/dL (14.0-18.0); MCH 31.8 pg (26.0-34.0); MCHC 34.2 g/dL (28.0-37.0); MCV 93.1 fL (80.0-100.0); RBC 3.63 mil/uL (4.50-6.00); RDW 12.5 % (10.5-14.5); WBC 7.2 thou/uL (4.0-11.0)
[2021-02-14 05:34] LABS: CALCIUM 8.8 mg/dL (8.5-10.1); CREATININE 0.6 mg/dL (0.7-1.3); POTASSIUM 3.7 mmol/L (3.5-5.1)
--- NOTE | 2021-02-14 09:45 | NUR ---
ASSUMMED CARE OF THIS PATIENT FROM CELSA CARCAMO THE NIGHT NURSE AT 0700 THIS AM. PATIENT PLACED ON SEDATION VACATION FROM 0900 TO 0930. WILL NOT FOLLOW COMMANDS. NOT ASSISTING VENT. EYES SL OPEN BLINKING. VSS. PROPOFOL TAPPERED. WILL CONTINUE TO MONITOR.
--- NOTE | 2021-02-14 20:58 | NUR ---
PATIENT IS NOT PROGRESSING TOWARDS OUTCOME GOALS. HAPPY IN LATE THIS AFTERNOON TO VISIT. REASSURANCE GIVEN
[2021-02-15] VITALS (17 sets, daily range): BP systolic 118–157; BP diastolic 67–93
[2021-02-15 05:58] LABS: CALCIUM 8.8 mg/dL (8.5-10.1); CREATININE 0.6 mg/dL (0.7-1.3); POTASSIUM 3.9 mmol/L (3.5-5.1)
--- NOTE | 2021-02-15 13:48 | NUR ---
chart review. he cont to be on vent. cm spoke with veronica hallman, she requesting one more test before she and family can make a decision. " needing this to be at peace and not upset the family. wanting a blood flow test since all test he had he was on iv drips"/edyta. danisha passed on information to MD and bedside nurse. will cont following as needed for dc needs.
--- NOTE | 2021-02-15 16:45 | NUR ---
VLAD MORRIS CALLED TODAY. ASKED QUESTIONS, UPDATED AND ANSWERED QUESTIONS TO SATISFACTION. SHE WANTED TO SPEAK WITH DR. JAMIL WHOM WAS PRESENT LATE THIS AFTERNOON, HE GRACIOUSLY SPOKE WITH HER AND ANSWERED HER QUESTIONS. ALEXANDRA WAS ALSO PRESENT, UPDATED. SHE STATES, "FAMILY IS OUT OF TOWN, THEY WILL ALL BE RETURNING ON MONDAY". PALLATIVE EXTUBATION PLANNED FOR MONDAY.
[2021-02-16] VITALS (16 sets, daily range): BP systolic 110–142; BP diastolic 66–79
[2021-02-16 05:14] LABS: BE(vivo) 1.5 mmol/L (-2 to +3); PCO2 31.5 mmHg (35.0-45.0); sO2 97.7 % (92.0-98.0)
[2021-02-16 06:05] LABS: ABSOLUTE NEUTROPHILS 9.2 thou/uL (1.4-8.2); BASOPHILS 0.7 % (0.0-2.0); EOSINOPHILS 0.6 % (0.0-3.0); HEMATOCRIT 36.7 % (42.0-52.0); HEMOGLOBIN 12.5 gm/dL (14.0-18.0); LYMPHOCYTES 6.5 % (24.0-44.0); MCH 31.6 pg (26.0-34.0); MCHC 34.1 g/dL (28.0-37.0); MCV 92.9 fL (80.0-100.0); PLATELET COUNT 430 thou/uL (150-400); POLYS 85.2 % (36.0-66.0); RBC 3.96 mil/uL (4.50-6.00); RDW 12.4 % (10.5-14.5); WBC 10.8 thou/uL (4.0-11.0)
[2021-02-16 06:21] LABS: ALBUMIN 2.7 g/dL (3.4-5.0); CALCIUM 9.1 mg/dL (8.5-10.1); CREATININE 0.7 mg/dL (0.7-1.3); POTASSIUM 3.9 mmol/L (3.5-5.1); TOTAL BILIRUBIN 0.5 mg/dL (0.2-1.0); TOTAL PROTEIN 6.9 g/dL (6.4-8.2)
--- NOTE | 2021-02-16 06:45 | NUR ---
PT NOT PROGRESSING TOWARDS PLAN OF CARE. REMAINS MINIMALLY RESPONSIVE WITH REFLEXES OF ASSIST VENT, COUGH, WILL HAVE CONSTANTLY TWITCHING OF EYES WITH PROPOFOL ON PAUSE. CONT PLAN OF CARE AT THIS TIME
--- NOTE | 2021-02-16 11:30 | NUR ---
discussed during am rounds. neuro spoke with happy yesterday and not needed to do a blood flow test like happy requested. waiting for family to arrive possible on monday for palliative extubation. will cont following as needed for dc needs.
--- NOTE | 2021-02-16 13:55 | NUR ---
SISTER- LYNNE ARTEAGA CALLED AND REQUESTED TO FACE TIME WITH HER BROTHER. Ansley PAVON RN ICU NURSE CLINICAL SYSTEMS EDUCATOR GRANTED FACE TIMING. SINCE FACE TIME INITIATED, NO REPOSITIONING AT THIS TIME.
--- NOTE | 2021-02-16 17:00 | NUR ---
Happy, fiance present. updated on status. listened and provided support. plan for pallative extubation when family present after 1500, tomorrow/Monday.
[2021-02-17] VITALS (12 sets, daily range): BP systolic 111–134; BP diastolic 69–79
--- NOTE | 2021-02-17 06:15 | NUR ---
PT NOT PROGRESSING TOWARD GOALS. WEANED SEDATION DOWN, NO SEIZURES NOTED, DOES HAVE A FORCEFUL COUGH. WILL WITHDRAWAL LT ARM TO PAIN, OTHERWISE EXTREMITIES FLACCID. SON MANDA, FACETIMED HIS DAD LAST NIGHT, AND STATES FAMILY WOULD LIKE TO SPEAK WITH DR BALLESTEROS AGAIN BEFORE PROCEEDING WITH DECISIONS. WILL REPORT OFF TO DAY SHIFT RN.
--- NOTE | 2021-02-17 09:40 | NUR ---
noted and discussed during am rounds, family (son), is wanting to talk with dr em again before they make decision to palliative extubate. happy and sister is his dpoa for hc decision. will cont following as needed for dc needs. he remains on vent, nutritional support.
--- NOTE | 2021-02-17 14:00 | NUR ---
SPOKE WITH ALEXANDRA LUISCedric VLAD AND MANDA LOW- SON PER CONFERENCE CALL. THEY AGREED THAT THEY HAD NOT BEEN TOLD ABOUT AND HAD QUESTIONS REGARDING "PALLATIVE EXTUBATION". EXPLAINED TO THEM WHAT TO EXPECT SURROUNDING EXTUBATION, POTENTIAL TRANSFER TO FLOOR WHEN APPROPIATE FOR PT AND WHEN DETERMINED APPROPIATE BY PHYSICIANS. ALEXANDRA STATED WHEN HE WAS STABLE ENOUGH TO TRANSFER, SHE WANTED HIM TO FLOOR TRANSFER TO ALLOW MORE FAMILY/VISITORS. RN ANSWERED QUESTIONS. THEY ARE REQUESTING A FAMILY CONFERENCE TODAY. RN OBTAINED LIST OF DESIRED VISITORS, THEN DISCUSSED FAMILY'S WISHES WITH Ansley PAVON RN COAL WEIGHER. FIRST, DR. MIRANDA PRESENT, THEN CALLS RETURNED FROM DR. BALLESTEROS AND DR. PHAM- DISCUSSED FAMILY REQUEST WITH EACH MD. DR. MIRANDA AGREEABLE TO 1400 FAMILY CONFERENCE, ALEXANDRA NOTIFIED.
[2021-02-18] VITALS (8 sets, daily range): BP systolic 12–151; BP diastolic 73–90
--- NOTE | 2021-02-18 12:54 | NUR ---
chart review. cm team passed on report. bedside nurse provided report and consult for possible needing hospice house, if he is palliative extubated after the MRI and EEG today. Family still deciding which direction to go. cont cares vs comfort. will cont following as needed for dc needs. he on vent, off propofol will have mri this afternoon and then eeg after that.
--- NOTE | 2021-02-18 16:38 | NUR ---
Assumed care at 0700, assessment and vital signs completed per ICU protocol. Pt's DPOA, Darrin, told Dr. Berman that she wants an EEG performed now that propofol is off. Dr. Berman said an MRI and EEG are recommended in conjunction with each other. Orders for both placed and performed. Family members were permitted to see pt per ICU visiting policy. Elvira met with Dr. Berman to discuss EEG and MRI results. Family wants to proceed with palliative extubation. Pt extubated at 16:25 by RT. Elvira brought back to the pt room after extubation. RN will continue to monitor.
--- NOTE | 2021-02-18 19:34 | NUR ---
Received pt from the ICU, on comfort care accompanied by sister Rylie and John Clifford along with the 2 sons. Maintained on isolation for c-diff and mrsa, with a rectal tube and tabor cat. Right UA 3 lumen picc line patent. Medication given as per emar, and morphine drip started with night nurse. On 3 liters of O2 via NC. Confort care maintained As per authorization manager, only 2 visitors are allowed to come in from 9 am to 5 pm and can stay til 7. If and when the pts. condition deteriorates at night, night nurse is to inform the 2 primary visitors. Darrin Gupta (fiance) [phone] Rylie Sin (sister) [phone] Sonia Burrows (sons) [phone] VS stable, medications given as per emar, family informed of the visitor policy.
--- NOTE | 2021-02-19 04:43 | NUR ---
PATIENT ON COMFORT CARE. MORPHINE DRIP STARTED. PATIENT TURNED Q [address] PATIENT IN BED ASLEEP AT THIS TIME BREATHING REGULAR AND UNLABOURED.
--- NOTE | 2021-02-19 12:26 | NUR ---
danisha s/w dr. em who asked danisha to arrange for hospice house, if pt is stable enough to transfer. dr em stated he will contact the family to have the discuss r/t the transfer. danisha contacted velasquez with [facility] [phone]. velasquez will do bedside eval "within the hour" and be in contact with danisha. d/c senior planner to fax clinicals to [facility] [phone].
--- NOTE | 2021-02-19 14:24 | NUR ---
FAXED REFERRAL TO [facility]. WILL CONFIRM THEY RECEIVED. [facility] P [phone]; FAX [phone]
--- NOTE | 2021-02-19 17:14 | NUR ---
[facility] FORM ON CHART AND HAS BEEN FAXED TO THE NON-EMERGENCY AMBULANCE TRANSPORTATION NUMBER. NEED TO CALL TO SCHEDULE A TIME. [facility] P [phone]; FAX [phone]
--- NOTE | 2021-02-19 19:46 | NUR ---
Assumed pt care this am, VS stab le fecal management in place not draining any new stool. FC in place drannig dark yellow urine almost tea colored, scant output noted. Comfort care orders carried out, still on morphine drip no titration needed. Oral care done frequently, 2 visitors allowed at a time as per approval, list given down and strict instructions given to the ED. Family informed , and advised that all family members come through the ED. Hospice nurse came to assess, recommended that pt go to hospice house. Spoke to the care worker, reiterrated that family wishes to have pt go home with hospice. Rediscussions initiated with hospice nurse, will follow up tomorrow for facilitation. POC followed. Endorsed to the night nurse.
[2021-02-19 20:36] VITALS: BP 134/79
--- NOTE | 2021-02-20 04:58 | NUR ---
ASSUMED CARE OF PATIENT AT 1900. NO CHANGE THRU NOC. FECAL MANAGEMENT IN PLACE NO OUTPUT NOTED, MORRISSEY IN PLACE PATENT.IV INFUSING MORPHINE AT 5ML/HR. NO S/S OF DISCOMFORT NOTED . [id number]. COMFORT CARE MEASURES THRU NOC. WILL CONTINUE TO MONITOR.
[2021-02-20 07:47] VITALS: BP 143/93
--- NOTE | 2021-02-20 15:49 | NUR ---
Assumed pt care this am, VS stable started. Family at the bed side, was informed by Darrin that she received a call from Marivel from hospice and advised the family that equipment needed was to be delivered to home at 2 pm. Around noon, Allie also from hospice called Darrin and made mention that no orders were made. I (nurse) called back and facilitated the needs in the home and arranged for trasnport through [employer] tras. operations supervisor chemical cleaning was at 3 pm, went home with PICC line intact, fecal management system (minimal out put) and tabor cat in place draining dark yellow urine. Oral care done throught out the shift.Prescriptions given to the fiance as per advise of hospice nurse Monse ([phone]) to be filled. POC followed, maintained on comfort care
--- NOTE | 2021-02-23 11:57 | NUR ---
bcpawel man needed to know what hospice he was dc with. cm called her back at [phone], provided information that he went to hospice house.
== END 2021-02-20 15:28 | disposition hospice, home (50) | DRG 207 ==
LOC: ER 13:06 → ICU 15:32 → EROBS 15:32 → ICU 19:45 → 4W 02-18 18:05
PROVIDERS: Emergency Medicine; Hospitalist; Internal Medicine; Internal Medicine Pulmonary Disease; Pediatrics; Psychiatry & Neurology Neuromuscular Medicine; Specialist; ADMIT Family Medicine; ATTEND Family Medicine
DX: U07.1 COVID-19 (principal); K72.00 Acute and subacute hepatic failure without coma; J96.01 Acute respiratory failure with hypoxia; I46.9 Cardiac arrest, cause unspecified; J12.82 Pneumonia due to coronavirus disease 2019; J69.0 Pneumonitis due to inhalation of food and vomit; J15.212 Pneumonia due to Methicillin resistant Staphylococcus aureus; G93.1 Anoxic brain damage, not elsewhere classified; N17.9 Acute kidney failure, unspecified; F11.20 Opioid dependence, uncomplicated; A04.72 Enterocolitis due to Clostridium difficile, not specified as recurrent; E78.5 Hyperlipidemia, unspecified; F32.9 Major depressive disorder, single episode, unspecified; F41.9 Anxiety disorder, unspecified; I44.7 Left bundle-branch block, unspecified; G89.4 Chronic pain syndrome; G25.3 Myoclonus; I95.9 Hypotension, unspecified; R74.01 Elevation of levels of liver transaminase levels; Z51.5 Encounter for palliative care; Z87.81 Personal history of (healed) traumatic fracture; Z98.52 Vasectomy status; Z88.8 Allergy status to other drugs, medicaments and biological substances; Z79.899 Other long term (current) drug therapy
CPT/HCPCS: 10047; 10078; 27000